=== PATIENT | male | born 1935 | race Caucasian/White ===

== ENCOUNTER 2017-01-12 09:26 | Outpatient (CLI) | payer MEDICARE, OTHER ==
[2017-01-12 10:19] LABS: Anion Gap 13 mmol/L (10-20); BUN (Urea Nitrogen) 33 mg/dL (8.4-25.7); Calc. Creatinine Clearance 0 mL/min (70-130); Calcium 9.1 mg/dL (7.8-10.44); Carbon Dioxide 26 mmol/L (23-31); Chloride 109 mmol/L (98-107); Estimated GFR-MDRD 45; Glucose 125 mg/dL (83-110); Potassium 4.8 mmol/L (3.5-5.1); Sodium 143 mmol/L (136-145)
== END 2017-01-12 09:27 | disposition home or self-care (01) ==
LOC: HPCALD 09:26
PROVIDERS: ATTEND Family Medicine
DX: I10 Essential (primary) hypertension (principal)
CPT/HCPCS: 36415; 80048

== ENCOUNTER 2017-02-24 07:48 | Outpatient (CLI) | payer MEDICARE ==
[2017-02-24 08:41] LABS: Hemoglobin 13.2 g/dL (14.0-18.0); Mean Corpuscular HGB CONC 34.5 g/dL (32.0-36.0); Mean Corpuscular Hemoglobin 32.3 pg (27.0-31.0); Mean Corpuscular Volume 93.6 fl (80.0-94.0); Mean Platelet Volume 7.8 fL (7.4-10.4); Platelet Count 186 thou/uL (130-400); RBC Distribution Width 11.9 % (11.5-14.5); White Blood Cell (WBC) Count 5.9 thou/uL (4.8-10.8)
[2017-02-24 08:48] LABS: Albumin 4.1 g/dL (3.4-4.8); Anion Gap 15 mmol/L (10-20); BUN (Urea Nitrogen) 33 mg/dL (8.4-25.7); BUN/Creatinine Ratio 21.43; Calc. Creatinine Clearance 0 mL/min (70-130); Calcium 9.7 mg/dL (7.8-10.44); Carbon Dioxide 25 mmol/L (23-31); Chloride 109 mmol/L (98-107); Estimated GFR-MDRD 43; Glucose 100 mg/dL (83-110); Potassium 4.7 mmol/L (3.5-5.1); Sodium 144 mmol/L (136-145)
[2017-02-24 17:08] LABS: Phosphorus 4.3 mg/dL (2.3-4.7)
[2017-02-24 17:26] LABS: Creatinine, Urine 85.58 mg/dL (63-166)
== END 2017-02-24 07:49 | disposition home or self-care (01) ==
LOC: BURLAB 07:48
PROVIDERS: ATTEND Internal Medicine Nephrology
DX: Z12.5 Encounter for screening for malignant neoplasm of prostate (principal); E78.5 Hyperlipidemia, unspecified; E11.22 Type 2 diabetes mellitus with diabetic chronic kidney disease; E72.11 Homocystinuria; I12.9 Hypertensive chronic kidney disease with stage 1 through stage 4 chronic kidney disease, or unspecified chronic kidney disease; N18.2 Chronic kidney disease, stage 2 (mild); I25.10 Atherosclerotic heart disease of native coronary artery without angina pectoris; R74.0 Nonspecific elevation of levels of transaminase and lactic acid dehydrogenase [LDH]; R74.8 Abnormal levels of other serum enzymes; R80.9 Proteinuria, unspecified
CPT/HCPCS: 36415; 80069; 82570; 84156; 85027; G0103

== ENCOUNTER 2017-03-17 09:26 | Outpatient (CLI) | payer MEDICARE ==
[2017-03-17 11:02] LABS: ALT (SGPT) 16 U/L (8-55); AST (SGOT) 21 U/L (5-34); Albumin 3.9 g/dL (3.4-4.8); Alkaline Phosphatase 66 U/L (40-150); Anion Gap 14 mmol/L (10-20); BUN (Urea Nitrogen) 29 mg/dL (8.4-25.7); Bilirubin, Total 0.8 mg/dL (0.2-1.2); Calc. Creatinine Clearance 0 mL/min (70-130); Calcium 9.2 mg/dL (7.8-10.44); Carbon Dioxide 25 mmol/L (23-31); Cardiac Risk 3.9 (Less than 4.5); Chloride 110 mmol/L (98-107); Cholesterol 125 mg/dl (< 200 Desired); Estimated GFR-MDRD 49; Globulin 2.8 g/dL (2.4-3.5); Glucose 80 mg/dL (83-110); HDL Cholesterol 32 mg/dL (>60 Neg Risk); LDL Cholesterol, Calculated 76 mg/dL; Protein, Total 6.7 g/dL (5.8-8.1); Sodium 144 mmol/L (136-145); Triglycerides 83 mg/dL (Less than 150)
[2017-03-17 11:12] LABS: Hemoglobin A1c 6.3 % (4.0-6.0)
== END 2017-03-17 09:27 | disposition home or self-care (01) ==
LOC: HPCALD 09:26
PROVIDERS: ATTEND Family Medicine
DX: E11.9 Type 2 diabetes mellitus without complications (principal); I10 Essential (primary) hypertension
CPT/HCPCS: 36415; 80053; 80061; 83036

== ENCOUNTER 2017-04-24 14:30 | Outpatient (CLI) | payer MEDICARE ==
--- NOTE | 2017-04-24 21:49 | RAD ---
CHEST TWO VIEWS: Date: 04-24-17 Comparison: 05-27-16 done at [place]. FINDINGS: Mild to moderate cardiomegaly is no worse than before. There is no congestion, effusions, or pulmona ry edema. Median sternotomy sutures are seen from prior surgery. The lungs are clear. The mediastinu m shows no acute change. IMPRESSION: Stable exam showing cardiomegaly but no acute findings. POS: HOME
== END 2017-04-24 14:31 | disposition home or self-care (01) ==
LOC: BURRAD 14:30
PROVIDERS: ATTEND Internal Medicine
DX: I35.0 Nonrheumatic aortic (valve) stenosis (principal); I51.7 Cardiomegaly
CPT/HCPCS: 36415; 71020; 83880

== ENCOUNTER 2018-04-01 22:50 | Emergency (ER) | payer MEDICARE ==
[2018-04-01 23:09] LABS: #Basophils 0.1 thou/uL (0.0-0.2); #Eosinphils 0.4 thou/uL (0.0-0.7); #Monocytes 0.7 thou/uL (0.11-0.59); %Basophils 1.5 % (0.0-1.0); %Eosinophils 6.2 % (0.0-10.0); %Lymphocytes 27.9 % (21.0-51.0); %Monocytes 9.3 % (0.0-10.0); %Neutrophils 55.1 % (42.0-75.0); Hemoglobin 11.7 g/dL (14.0-18.0); Mean Corpuscular HGB CONC 36.2 g/dL (32.0-36.0); Mean Corpuscular Hemoglobin 31.2 pg (27.0-31.0); Mean Corpuscular Volume 86.2 fL (78.0-98.0); Mean Platelet Volume 7.8 fL (7.4-10.4); Platelet Count 164 thou/uL (130-400); RBC Distribution Width 11.9 % (11.5-14.5); Red Blood Cell (RBC) Count 3.76 mill/uL (4.70-6.10); White Blood Cell (WBC) Count 7.2 thou/uL (4.8-10.8)
[2018-04-01 23:27] LABS: ALT (SGPT) 16 U/L (8-55); AST (SGOT) 24 U/L (5-34); Albumin 4.3 g/dL (3.4-4.8); Alkaline Phosphatase 77 U/L (40-150); Anion Gap 15 mmol/L (10-20); BUN (Urea Nitrogen) 35 mg/dL (8.4-25.7); Bilirubin, Total 0.6 mg/dL (0.2-1.2); CKMB 3.7 ng/mL (0-6.6); Calc. Creatinine Clearance 0 mL/min (70-130); Calcium 9.5 mg/dL (7.8-10.44); Carbon Dioxide 22 mmol/L (23-31); Chloride 111 mmol/L (98-107); Estimated GFR-MDRD 42; Globulin 3.5 g/dL (2.4-3.5); Glucose 158 mg/dL (83-110); Magnesium 2.9 mg/dL (1.6-2.6); Protein, Total 7.8 g/dL (5.8-8.1); Sodium 143 mmol/L (136-145)
--- NOTE | 2018-04-02 00:11 | CT ---
NONCONTRAST HEAD CT: HISTORY: New onset weakness. Slurred speech. COMPARISON: None. TECHNIQUE: A noncontrast head CT is performed from the skull base to the skull vertex. FINDINGS: There is beam attenuation artifact secondary to a right-sided hearing aid. No parenchymal hemorrhage. No extraaxial hematoma. No midline shift. The basilar cisterns are valdez nt. Age appropriate atrophy. Cortical harris white matter differentiation is preserved. The ventricles and sulci are patent and symmetric. The calvarium is intact. Adequate aeration of the sinuses and mastoid air cells. Cavernous carotid atherosclerosis is noted. Coarse calcification in the pineal bland is identified. A small punctate remote infarct may be present along the anterior left lentiform nucleus. IMPRESSION: No acute intracranial process. The results of the study were discussed with Dr. Jama on 04/01/2018 at 11:11 p.m. JAYDE FARLEY POS: [facility]
--- NOTE | 2018-04-02 11:06 | CT ---
PRELIMINARY REPORT/[facility]/EMERGENTY AFTER-HOURS PROCEDURE CT Angiography Head With Intravenous Contrast CLINICAL HISTORY: 82 years old, male; Signs and symptoms; Speech disturbance and weakness; Slurred speech; Additional i nfo: Weakness slurred speech// this is a cta head & neck TECHNIQUE: Axial computed tomographic angiography images of the head with intravenous contrast using CT angiogra phy protocol. All CT scans at this facility use at least one of these dose optimization techniques: a utomated exposure control; mA and/or kV adjustment per patient size (includes targeted exams where do se is matched to clinical indication); or iterative reconstruction. MIP reconstructed images were created and reviewed. COMPARISON: No relevant prior studies available. FINDINGS: Right internal carotid artery: No acute findings. Intracranial segment is patent with no significant stenosis. No aneurysm. Right anterior cerebral artery: Unremarkable. No occlusion or significant stenosis. No aneurysm. Right middle cerebral artery: Unremarkable. No occlusion or significant stenosis. No aneurysm. Right posterior cerebral artery: Unremarkable. No occlusion or significant stenosis. No aneurysm. Right vertebral artery: Unremarkable as visualized. Left internal carotid artery: No acute findings. Intracranial segment is patent with no significant s tenosis. No aneurysm. Left anterior cerebral artery: Unremarkable. No occlusion or significant stenosis. No aneurysm. Left middle cerebral artery: Unremarkable. No occlusion or significant stenosis. No aneurysm. Left posterior cerebral artery: Unremarkable. No occlusion or significant stenosis. No aneurysm. Left vertebral artery: Unremarkable as visualized. Basilar artery: Unremarkable. No occlusion or significant stenosis. No aneurysm. IMPRESSION: No evidence of focal high-grade stenosis or intraluminal filling defect. CT Angiography Neck Without And With Intravenous Contrast COMPARISON: No relevant prior studies available. FINDINGS: VASCULATURE: Right common carotid artery: Unremarkable. No significant stenosis. No dissection or occlusion. Right internal carotid artery: Atherosclerotic plaque in the right carotid bulb with less than 50% st enosis. No dissection or occlusion. Right external carotid artery: Unremarkable. No occlusion. Right vertebral artery: Unremarkable. No significant stenosis. No dissection or occlusion. Left common carotid artery: Unremarkable. No significant stenosis. No dissection or occlusion. Left internal carotid artery: Atherosclerotic plaque in the left carotid bulb with less than 50% sten osis. No dissection or occlusion. Left external carotid artery: Unremarkable. No occlusion. Left vertebral artery: Unremarkable. No significant stenosis. No dissection or occlusion. NECK: Bones/joints: Degenerative changes in the spine. No acute fracture. No dislocation. Soft tissues: Unremarkable as visualized. No mass. CAROTID STENOSIS REFERENCE USING NASCET CRITERIA: % ICA stenosis = (1 - narrowest ICA diameter/diameter of distal cervical ICA) x 100. Mild - <50% stenosis. Moderate - 50-69% stenosis. Severe - 70-94% stenosis. Near occlusion - 95-99% stenosis. Occluded - 100% stenosis. IMPRESSION: No evidence of focal high-grade stenosis or intraluminal filling defect. Thank you for allowing us to participate in the care of your patient. Dictated and Authenticated by: Lasha Ayala MD 04/02/2018 12:32 AM Central Time ([place] & [place]) FINAL REPORT CT ANGIO HEAD WITH IV CONTRAST: Multiple axial tomograms obtained through head with angio protocol. Multiplanar reconstruction and 3D postprocessing performed. FINDINGS: Motion artifact degrades the exam. The intracranial internal carotid arteries show mild atherosclerot ic change. No evidence of significant stenosis. The anterior cerebral arteries, middle cerebral arter ies, and posterior cerebral arteries appear and symmetric. No focal stenosis or occlusion. I am in agreement with the preliminary report issued by [facility]. FINAL REPORT CT ANGIO NECK: Multiple axial tomograms obtained through neck following angio protocol with multiplanar reconstructi on and 3D postprocessing. FINDINGS: No significant stenosis at the origin of the arch vessels. Atherosclerotic calcification is seen at b oth bulbs; however, no evidence of significant stenosis identified in either internal carotid artery. I am in agreement with the preliminary report issued by [facility]. POS: [facility]
== END 2018-04-02 00:35 | disposition short-term general hospital (02) ==
LOC: BURERS 22:50
DX: I63.9 Cerebral infarction, unspecified (principal); I21.4 Non-ST elevation (NSTEMI) myocardial infarction; E11.9 Type 2 diabetes mellitus without complications; I10 Essential (primary) hypertension; E78.5 Hyperlipidemia, unspecified
CPT/HCPCS: 36416; 70450; 70496; 70498; 80053; 82553; 83735; 84484; 85025; 93005

== ENCOUNTER 2018-04-14 19:57 | Emergency (ER) | payer MEDICARE | END 2018-04-14 20:25 | disposition home or self-care (01) | LOC: BURERS 19:57 | DX: T82.838A Hemorrhage due to vascular prosthetic devices, implants and grafts, initial encounter (principal); E11.9 Type 2 diabetes mellitus without complications; I10 Essential (primary) hypertension; I48.91 Unspecified atrial fibrillation; Z79.899 Other long term (current) drug therapy; Z79.4 Long term (current) use of insulin | CPT/HCPCS: 12001 ==

== ENCOUNTER 2018-04-15 19:57 | Emergency (ER) | payer MEDICARE | END 2018-04-15 22:12 | disposition left against medical advice (07) | LOC: BURERS 19:57 | DX: Z53.21 Procedure and treatment not carried out due to patient leaving prior to being seen by health care provider (principal) ==

== ENCOUNTER 2021-12-08 10:46 | Inpatient (IN) | payer MEDICARE ==
[2021-12-10] MEDS ORDERED: Acetaminophen/Codeine 30-300mg Tablet PO PRN (00:47)
[2021-12-10] MEDS: Acetaminophen/Codeine 30-300mg Tablet PO PRN ×2 (04:18→14:35)
[2021-12-10] MEDS ORDERED: SOD CHLORIDE TOP PRN (06:36)
[2021-12-10] MEDS ORDERED: [UNRECOGNIZED DRUG - OTHER] TOP PRN (06:36)
[2021-12-10] MEDS ORDERED: LAN TOP PRN (06:36)
[2021-12-10] MEDS ORDERED: Hydrocerin (Eucerin) Cream 120 gm Jar TOP PRN (06:36)
[2021-12-10] MEDS ORDERED: LUBRIDERM TOP PRN (07:01)
[2021-12-10] MEDS ORDERED: Dextrose 50% Abboject 50 ML SYRINGE SLOW IVP PRN (07:18)
[2021-12-10] MEDS ORDERED: Dextrose 5% in Water 1,000 ML IV PRN (07:18)
[2021-12-10] MEDS ORDERED: Linaclotide [Linzess] 290 MCG Capsule PO SCH (09:00)
[2021-12-10] MEDS ORDERED: MILK THISTLE 500 MG PO SCH (09:00)
[2021-12-10] MEDS ORDERED: Non-Formulary Item 1 EACH (Cholecalciferol (Vitamin D3) [Vitamin D3] 2,000 UNIT Capsule) PO SCH (09:00)
[2021-12-10] MEDS ORDERED: Non-Formulary Item 1 EACH (Magnesium [Magnesium] 30 MG Tablet) PO SCH (09:00)
[2021-12-10] MEDS ORDERED: Non-Formulary Item 1 EACH (Levemir Flexpen [Levemir Flexpen] 100 UNITS/ML Pen) SC SCH ×2 (09:00→21:00)
[2021-12-10] MEDS ORDERED: Non-Formulary Item 1 EACH (Linaclotide [Linzess] 290 MCG Capsule) PO SCH (09:00)
[2021-12-10] MEDS ORDERED: Non-Formulary Item 1 EACH (Atorvastatin Calcium [Lipitor] 20 MG Tab) PO SCH (09:00)
[2021-12-10] MEDS ORDERED: Non-Formulary Item 1 EACH (Cyanocobalamin (Vitamin B-12) [Vitamin B-12] 500 MCG Tablet) PO SCH (09:00)
[2021-12-10] MEDS: Multivitamin W/ Minerals 1 TAB PO SCH (10:23)
[2021-12-10] MEDS: Senokot 8.6 MG TAB PO SCH (10:23)
[2021-12-10] MEDS: Apixaban 2.5 MG TAB PO SCH ×2 (10:24→20:44)
[2021-12-10] MEDS: Aspirin 81 mg Enteric Coated Tablet PO SCH (10:24)
[2021-12-10] MEDS: Cholecalciferol 1,000 UNITS (25 MCG) TAB PO SCH (10:24)
[2021-12-10] MEDS: Carvedilol 3.125 MG TAB PO SCH ×2 (10:24→17:49)
[2021-12-10] MEDS: Fish Oil 1,000 MG CAP PO SCH ×2 (10:25→20:44)
[2021-12-10] MEDS: Furosemide 20 MG TAB PO SCH (10:26)
[2021-12-10] MEDS: Acetaminophen/Codeine 30-300mg Tablet PO SCH ×4 (10:27→23:50)
[2021-12-10] MEDS: Magnesium Oxide 400 MG TAB PO SCH (10:27)
[2021-12-10] MEDS: HumaLOG 300 UNITS/3 ML VIAL SC PRN ×3 (10:30→17:49)
[2021-12-10] MEDS: Lantus 1000 UNITS/10 ML VIAL SC SCH ×2 (10:31→20:45)
[2021-12-10] MEDS: Cyanocobalamin (Vitamin B-12) 1,000 MCG TAB PO SCH (10:32)
[2021-12-10] MEDS: MILK THISTLE 500 MG PO SCH (14:01)
[2021-12-10] MEDS: Polyethylene Glycol 3350 17 GM Packet PO SCH (14:01)
[2021-12-10] MEDS: Acetaminophen 325 MG TAB PO SCH ×3 (16:26→23:51)
[2021-12-10] MEDS: Famotidine 20 MG TAB PO SCH (20:44)
[2021-12-10] MEDS: Atorvastatin Calcium 40 MG TAB PO SCH (20:44)
[2021-12-11] MEDS: Acetaminophen/Codeine 30-300mg Tablet PO SCH ×3 (05:57→17:46)
[2021-12-11] MEDS: Acetaminophen 325 MG TAB PO SCH ×3 (05:58→17:45)
[2021-12-11] MEDS: Linaclotide [Linzess] 290 MCG Capsule PO SCH (07:29)
[2021-12-11] MEDS: Aspirin 81 mg Enteric Coated Tablet PO SCH (09:09)
[2021-12-11] MEDS: Cyanocobalamin (Vitamin B-12) 1,000 MCG TAB PO SCH (09:09)
[2021-12-11] MEDS: Carvedilol 3.125 MG TAB PO SCH ×2 (09:10→17:11)
[2021-12-11] MEDS: Multivitamin W/ Minerals 1 TAB PO SCH (09:11)
[2021-12-11] MEDS: Magnesium Oxide 400 MG TAB PO SCH (09:11)
[2021-12-11] MEDS: Cholecalciferol 1,000 UNITS (25 MCG) TAB PO SCH (09:11)
[2021-12-11] MEDS: Furosemide 20 MG TAB PO SCH (09:11)
[2021-12-11] MEDS: Apixaban 2.5 MG TAB PO SCH ×2 (09:11→20:17)
[2021-12-11] MEDS: Senokot 8.6 MG TAB PO SCH (09:11)
[2021-12-11] MEDS: Polyethylene Glycol 3350 17 GM Packet PO SCH (09:12)
[2021-12-11] MEDS: Fish Oil 1,000 MG CAP PO SCH ×3 (09:12→20:19)
[2021-12-11] MEDS: MILK THISTLE 500 MG PO SCH (09:12)
[2021-12-11] MEDS: Lantus 1000 UNITS/10 ML VIAL SC SCH ×2 (09:17→20:16)
[2021-12-11] MEDS: HumaLOG 300 UNITS/3 ML VIAL SC PRN (12:10)
[2021-12-11] MEDS: Ondansetron ODT 4 MG TAB PO PRN (17:36)
[2021-12-11] MEDS: Atorvastatin Calcium 40 MG TAB PO SCH (20:16)
[2021-12-11] MEDS: Famotidine 20 MG TAB PO SCH (20:17)
[2021-12-12] MEDS: Acetaminophen/Codeine 30-300mg Tablet PO SCH ×4 (01:23→18:44)
[2021-12-12] MEDS: Acetaminophen 325 MG TAB PO SCH ×4 (01:23→18:44)
[2021-12-12] MEDS: Polyethylene Glycol 3350 17 GM Packet PO SCH (08:52)
[2021-12-12] MEDS: Senokot 8.6 MG TAB PO SCH (08:52)
[2021-12-12] MEDS: Aspirin 81 mg Enteric Coated Tablet PO SCH (08:53)
[2021-12-12] MEDS: Fish Oil 1,000 MG CAP PO SCH ×2 (08:53→20:34)
[2021-12-12] MEDS: Apixaban 2.5 MG TAB PO SCH ×2 (08:57→20:33)
[2021-12-12] MEDS: Multivitamin W/ Minerals 1 TAB PO SCH (08:57)
[2021-12-12] MEDS: Cyanocobalamin (Vitamin B-12) 1,000 MCG TAB PO SCH (08:57)
[2021-12-12] MEDS: Furosemide 20 MG TAB PO SCH (08:57)
[2021-12-12] MEDS: Cholecalciferol 1,000 UNITS (25 MCG) TAB PO SCH (08:57)
[2021-12-12] MEDS: Magnesium Oxide 400 MG TAB PO SCH (08:57)
[2021-12-12] MEDS: Carvedilol 3.125 MG TAB PO SCH ×2 (08:58→17:13)
[2021-12-12] MEDS: Linaclotide [Linzess] 290 MCG Capsule PO SCH (08:58)
[2021-12-12] MEDS: Lantus 1000 UNITS/10 ML VIAL SC SCH ×2 (08:59→20:34)
[2021-12-12] MEDS: MILK THISTLE 500 MG PO SCH (09:09)
[2021-12-12] MEDS: Bisacodyl 10 MG SUPP PR PRN (13:09)
[2021-12-12] MEDS: HumaLOG 300 UNITS/3 ML VIAL SC PRN ×2 (13:48→17:13)
[2021-12-12] MEDS: Famotidine 20 MG TAB PO SCH (20:33)
[2021-12-12] MEDS: Atorvastatin Calcium 40 MG TAB PO SCH (20:33)
[2021-12-13] MEDS: Acetaminophen 325 MG TAB PO SCH ×3 (01:01→11:09)
[2021-12-13] MEDS: Acetaminophen/Codeine 30-300mg Tablet PO SCH ×3 (01:02→11:07)
[2021-12-13 05:33] LABS: #Basophils 0.1 thou/uL (0.0-0.2); #Eosinphils 0.1 thou/uL (0.0-0.7); #Lymphocytes 1.1 thou/uL (1.20-3.40); #Neutrophils 7.3 thou/uL (1.40-6.50); %Basophils 0.9 % (0.0-1.0); %Eosinophils 1.4 % (0.0-10.0); %Lymphocytes 11.1 % (21.0-51.0); %Monocytes 10.1 % (0.0-10.0); %Neutrophils 76.6 % (42.0-75.0); Hemoglobin 9.4 g/dL (14.0-18.0); Mean Corpuscular HGB CONC 33.8 g/dL (32.0-36.0); Mean Corpuscular Hemoglobin 33.3 pg (27.0-31.0); Mean Corpuscular Volume 98.6 fL (78.0-98.0); Mean Platelet Volume 6.6 fL (7.4-10.4); Platelet Count 350 thou/uL (130-400); RBC Distribution Width 13.3 % (11.5-14.5); Red Blood Cell (RBC) Count 2.83 mill/uL (4.70-6.10); White Blood Cell (WBC) Count 9.5 thou/uL (4.8-10.8)
[2021-12-13 06:11] LABS: ALT (SGPT) Less than 7 U/L (8-55); AST (SGOT) 21 U/L (5-34); Albumin 2.7 g/dL (3.4-4.8); Alkaline Phosphatase 90 U/L (40-110); Anion Gap 15 mmol/L (10-20); BUN (Urea Nitrogen) 43 mg/dL (8.4-25.7); Calc. Creatinine Clearance 58 mL/min (70-130); Calcium 8.3 mg/dL (7.8-10.44); Carbon Dioxide 26 mmol/L (23-31); Chloride 106 mmol/L (98-107); Globulin 2.5 g/dL (2.4-3.5); Glucose 217 mg/dL (83-110); Potassium 4.8 mmol/L (3.5-5.1); Protein, Total 5.2 g/dL (5.8-8.1); Sodium 142 mmol/L (136-145)
[2021-12-13] MEDS ORDERED: Polyethylene Glycol 3350 17 GM Packet PO PRN (07:15)
[2021-12-13] MEDS: Linaclotide [Linzess] 290 MCG Capsule PO SCH (08:27)
[2021-12-13] MEDS: HumaLOG 300 UNITS/3 ML VIAL SC PRN ×3 (09:41→17:41)
[2021-12-13] MEDS: Cyanocobalamin (Vitamin B-12) 1,000 MCG TAB PO SCH (09:42)
[2021-12-13] MEDS: Cholecalciferol 1,000 UNITS (25 MCG) TAB PO SCH (09:42)
[2021-12-13] MEDS: Lantus 1000 UNITS/10 ML VIAL SC SCH ×2 (09:42→20:58)
[2021-12-13] MEDS: Furosemide 20 MG TAB PO SCH (09:43)
[2021-12-13] MEDS: Apixaban 2.5 MG TAB PO SCH ×2 (09:43→21:00)
[2021-12-13] MEDS: Carvedilol 3.125 MG TAB PO SCH ×2 (09:43→16:41)
[2021-12-13] MEDS: Aspirin 81 mg Enteric Coated Tablet PO SCH (09:43)
[2021-12-13] MEDS: Multivitamin W/ Minerals 1 TAB PO SCH (09:43)
[2021-12-13] MEDS: Magnesium Oxide 400 MG TAB PO SCH (09:43)
[2021-12-13] MEDS: Fish Oil 1,000 MG CAP PO SCH (09:44)
[2021-12-13] MEDS: Senokot 8.6 MG TAB PO SCH (09:44)
[2021-12-13] MEDS: MILK THISTLE 500 MG PO SCH (10:16)
[2021-12-13] MEDS: Famotidine 20 MG TAB PO SCH (21:00)
[2021-12-13] MEDS: Atorvastatin Calcium 40 MG TAB PO SCH (21:00)
[2021-12-14] MEDS: Acetaminophen/Codeine 30-300mg Tablet PO PRN ×4 (03:07→16:51)
[2021-12-14] MEDS: Linaclotide [Linzess] 290 MCG Capsule PO SCH (08:20)
[2021-12-14] MEDS: Lantus 1000 UNITS/10 ML VIAL SC SCH ×2 (09:50→20:38)
[2021-12-14] MEDS: Multivitamin W/ Minerals 1 TAB PO SCH (09:51)
[2021-12-14] MEDS: Carvedilol 3.125 MG TAB PO SCH ×2 (09:51→16:55)
[2021-12-14] MEDS: Cholecalciferol 1,000 UNITS (25 MCG) TAB PO SCH (09:51)
[2021-12-14] MEDS: Magnesium Oxide 400 MG TAB PO SCH (09:51)
[2021-12-14] MEDS: Cyanocobalamin (Vitamin B-12) 1,000 MCG TAB PO SCH (09:51)
[2021-12-14] MEDS: Aspirin 81 mg Enteric Coated Tablet PO SCH (09:52)
[2021-12-14] MEDS: Furosemide 20 MG TAB PO SCH (09:52)
[2021-12-14] MEDS: MILK THISTLE 500 MG PO SCH (09:53)
[2021-12-14] MEDS: Apixaban 2.5 MG TAB PO SCH ×2 (09:53→20:39)
[2021-12-14] MEDS: Senokot 8.6 MG TAB PO SCH (09:53)
[2021-12-14] MEDS ORDERED: Aquaphor 3.5 oz (99 G) JAR TOP PRN (16:12)
[2021-12-14] MEDS: HumaLOG 300 UNITS/3 ML VIAL SC PRN (16:52)
[2021-12-14] MEDS: Atorvastatin Calcium 40 MG TAB PO SCH (20:39)
[2021-12-14] MEDS: Famotidine 20 MG TAB PO SCH (20:39)
[2021-12-15] MEDS: Acetaminophen/Codeine 30-300mg Tablet PO PRN ×2 (00:19→12:18)
[2021-12-15] MEDS: Linaclotide [Linzess] 290 MCG Capsule PO SCH (07:49)
[2021-12-15] MEDS: Cyanocobalamin (Vitamin B-12) 1,000 MCG TAB PO SCH (08:52)
[2021-12-15] MEDS: Aspirin 81 mg Enteric Coated Tablet PO SCH (08:52)
[2021-12-15] MEDS: Multivitamin W/ Minerals 1 TAB PO SCH (08:52)
[2021-12-15] MEDS: Cholecalciferol 1,000 UNITS (25 MCG) TAB PO SCH (08:52)
[2021-12-15] MEDS: Magnesium Oxide 400 MG TAB PO SCH (08:53)
[2021-12-15] MEDS: Lantus 1000 UNITS/10 ML VIAL SC SCH ×2 (08:53→20:43)
[2021-12-15] MEDS: Carvedilol 3.125 MG TAB PO SCH ×2 (08:53→18:14)
[2021-12-15] MEDS: Apixaban 2.5 MG TAB PO SCH ×2 (08:53→20:44)
[2021-12-15] MEDS: Furosemide 20 MG TAB PO SCH (08:53)
[2021-12-15] MEDS: Senokot 8.6 MG TAB PO SCH (08:53)
[2021-12-15] MEDS: Cyclobenzaprine 10 MG TAB PO PRN (14:19)
[2021-12-15] MEDS: Ondansetron ODT 4 MG TAB PO PRN (16:26)
[2021-12-15] MEDS: Famotidine 20 MG TAB PO SCH (20:44)
[2021-12-15] MEDS: Atorvastatin Calcium 40 MG TAB PO SCH (20:45)
[2021-12-16] MEDS: Cyclobenzaprine 10 MG TAB PO PRN (00:51)
[2021-12-16] MEDS: Acetaminophen/Codeine 30-300mg Tablet PO PRN ×2 (00:52→10:07)
[2021-12-16] MEDS: Ondansetron ODT 4 MG TAB PO PRN ×3 (00:52→16:51)
[2021-12-16] MEDS: Linaclotide [Linzess] 290 MCG Capsule PO SCH (04:49)
[2021-12-16] MEDS: Cholecalciferol 1,000 UNITS (25 MCG) TAB PO SCH (08:37)
[2021-12-16] MEDS: Apixaban 2.5 MG TAB PO SCH ×2 (08:37→21:25)
[2021-12-16] MEDS: Cyanocobalamin (Vitamin B-12) 1,000 MCG TAB PO SCH (08:37)
[2021-12-16] MEDS: Senokot 8.6 MG TAB PO SCH (08:39)
[2021-12-16] MEDS: Multivitamin W/ Minerals 1 TAB PO SCH (08:39)
[2021-12-16] MEDS: Furosemide 20 MG TAB PO SCH (08:39)
[2021-12-16] MEDS: Aspirin 81 mg Enteric Coated Tablet PO SCH (08:39)
[2021-12-16] MEDS: Carvedilol 3.125 MG TAB PO SCH ×2 (08:39→16:51)
[2021-12-16] MEDS: Magnesium Oxide 400 MG TAB PO SCH (08:39)
[2021-12-16] MEDS: Lantus 1000 UNITS/10 ML VIAL SC SCH (08:41)
[2021-12-16] MEDS: Promethazine HCl 25 MG/ML VIAL IM PRN (12:24)
[2021-12-16] MEDS: Famotidine 20 MG TAB PO SCH (21:00)
[2021-12-16] MEDS: Dextrose 5 % And 0.9 % NaCl 1,000 ML IV SCH (21:00)
[2021-12-16] MEDS: Atorvastatin Calcium 40 MG TAB PO SCH (21:00)
[2021-12-17] MEDS: Promethazine HCl 25 MG/ML VIAL IM PRN (00:41)
[2021-12-17 05:55] LABS: #Basophils 0.1 thou/uL (0.0-0.2); #Eosinphils 0.1 thou/uL (0.0-0.7); #Lymphocytes 0.8 thou/uL (1.20-3.40); #Monocytes 0.8 thou/uL (0.11-0.59); #Neutrophils 10.3 thou/uL (1.40-6.50); %Basophils 0.8 % (0.0-1.0); %Lymphocytes 6.6 % (21.0-51.0); %Monocytes 6.5 % (0.0-10.0); %Neutrophils 85.2 % (42.0-75.0); Hemoglobin 10.3 g/dL (14.0-18.0); Mean Corpuscular Hemoglobin 33.9 pg (27.0-31.0); Mean Corpuscular Volume 99.7 fL (78.0-98.0); Mean Platelet Volume 6.5 fL (7.4-10.4); Platelet Count 429 thou/uL (130-400); Red Blood Cell (RBC) Count 3.03 mill/uL (4.70-6.10)
[2021-12-17] MEDS: Linaclotide [Linzess] 290 MCG Capsule PO SCH (05:55)
[2021-12-17 06:15] LABS: ALT (SGPT) 8 U/L (8-55); AST (SGOT) 28 U/L (5-34); Albumin 3.1 g/dL (3.4-4.8); Alkaline Phosphatase 106 U/L (40-110); Anion Gap 16 mmol/L (10-20); BUN (Urea Nitrogen) 35 mg/dL (8.4-25.7); Bilirubin, Total 1.3 mg/dL (0.2-1.2); Calc. Creatinine Clearance 64 mL/min (70-130); Calcium 8.3 mg/dL (7.8-10.44); Carbon Dioxide 29 mmol/L (23-31); Chloride 106 mmol/L (98-107); Globulin 2.8 g/dL (2.4-3.5); Glucose 100 mg/dL (83-110); Potassium 4.5 mmol/L (3.5-5.1); Protein, Total 5.9 g/dL (5.8-8.1); Sodium 146 mmol/L (136-145)
[2021-12-17] MEDS ORDERED: Meropenem 1 GM in Sodium Chloride 0.9% 100 ML IVPB SCH (08:00)
[2021-12-17] MEDS: CALM MAG SUPPLEMENT PO PRN (12:31)
[2021-12-17] MEDS: Cholecalciferol 1,000 UNITS (25 MCG) TAB PO SCH (12:39)
[2021-12-17] MEDS: Carvedilol 3.125 MG TAB PO SCH ×2 (12:39→18:11)
[2021-12-17] MEDS: Apixaban 2.5 MG TAB PO SCH ×2 (12:39→20:35)
[2021-12-17] MEDS: Multivitamin W/ Minerals 1 TAB PO SCH (12:39)
[2021-12-17] MEDS: Magnesium Oxide 400 MG TAB PO SCH (12:39)
[2021-12-17] MEDS: Furosemide 20 MG TAB PO SCH (12:39)
[2021-12-17] MEDS: Cyanocobalamin (Vitamin B-12) 1,000 MCG TAB PO SCH (12:39)
[2021-12-17] MEDS: Aspirin 81 mg Enteric Coated Tablet PO SCH (12:39)
[2021-12-17] MEDS: Senokot 8.6 MG TAB PO SCH (12:40)
[2021-12-17] MEDS: Dextrose 5 % And 0.9 % NaCl 1,000 ML IV SCH (13:13)
[2021-12-17] MEDS: Meropenem 1 GM in Sodium Chloride 0.9% 100 ML IVPB SCH (18:07)
[2021-12-17] MEDS: Atorvastatin Calcium 40 MG TAB PO SCH (20:34)
[2021-12-17] MEDS: Famotidine 20 MG TAB PO SCH (20:34)
[2021-12-18] MEDS: Dextrose 5 % And 0.9 % NaCl 1,000 ML IV SCH ×3 (03:31→21:22)
[2021-12-18] MEDS: Meropenem 1 GM in Sodium Chloride 0.9% 100 ML IVPB SCH ×2 (03:44→16:16)
[2021-12-18] MEDS: CALM MAG SUPPLEMENT PO PRN (05:03)
[2021-12-18] MEDS: Linaclotide [Linzess] 290 MCG Capsule PO SCH ×2 (05:07→05:16)
[2021-12-18 05:17] LABS: #Basophils 0.1 thou/uL (0.0-0.2); #Eosinphils 0.3 thou/uL (0.0-0.7); #Lymphocytes 1.3 thou/uL (1.20-3.40); #Monocytes 0.8 thou/uL (0.11-0.59); #Neutrophils 8.7 thou/uL (1.40-6.50); %Basophils 0.9 % (0.0-1.0); %Eosinophils 3.1 % (0.0-10.0); %Lymphocytes 11.2 % (21.0-51.0); %Monocytes 6.8 % (0.0-10.0); Hemoglobin 8.5 g/dL (14.0-18.0); Mean Corpuscular HGB CONC 33.3 g/dL (32.0-36.0); Mean Corpuscular Hemoglobin 33.1 pg (27.0-31.0); Mean Corpuscular Volume 99.3 fL (78.0-98.0); Mean Platelet Volume 6.9 fL (7.4-10.4); Platelet Count 337 thou/uL (130-400); RBC Distribution Width 13.6 % (11.5-14.5); Red Blood Cell (RBC) Count 2.57 mill/uL (4.70-6.10); White Blood Cell (WBC) Count 11.2 thou/uL (4.8-10.8)
[2021-12-18 05:23] LABS: ALT (SGPT) Less than 7 U/L (8-55); AST (SGOT) 26 U/L (5-34); Albumin 2.6 g/dL (3.4-4.8); Alkaline Phosphatase 85 U/L (40-110); Anion Gap 10 mmol/L (10-20); BUN (Urea Nitrogen) 33 mg/dL (8.4-25.7); Bilirubin, Total 1.1 mg/dL (0.2-1.2); Calc. Creatinine Clearance 61 mL/min (70-130); Calcium 8.1 mg/dL (7.8-10.44); Carbon Dioxide 29 mmol/L (23-31); Chloride 108 mmol/L (98-107); Globulin 2.9 g/dL (2.4-3.5); Glucose 105 mg/dL (83-110); Potassium 4.2 mmol/L (3.5-5.1); Protein, Total 5.5 g/dL (5.8-8.1); Sodium 143 mmol/L (136-145)
[2021-12-18] MEDS: Carvedilol 3.125 MG TAB PO SCH ×2 (08:48→18:32)
[2021-12-18] MEDS: Cholecalciferol 1,000 UNITS (25 MCG) TAB PO SCH (08:48)
[2021-12-18] MEDS: Cyanocobalamin (Vitamin B-12) 1,000 MCG TAB PO SCH (08:48)
[2021-12-18] MEDS: Furosemide 20 MG TAB PO SCH (08:50)
[2021-12-18] MEDS: Multivitamin W/ Minerals 1 TAB PO SCH (08:50)
[2021-12-18] MEDS: Magnesium Oxide 400 MG TAB PO SCH (08:50)
[2021-12-18] MEDS: Senokot 8.6 MG TAB PO SCH (08:50)
[2021-12-18] MEDS: Apixaban 2.5 MG TAB PO SCH ×2 (08:50→20:54)
[2021-12-18] MEDS: Aspirin 81 mg Enteric Coated Tablet PO SCH (08:50)
[2021-12-18] MEDS: HumaLOG 300 UNITS/3 ML VIAL SC PRN (17:13)
[2021-12-18] MEDS: Famotidine 20 MG TAB PO SCH (20:54)
[2021-12-18] MEDS: Atorvastatin Calcium 40 MG TAB PO SCH (20:54)
[2021-12-18] MEDS: Cyclobenzaprine 10 MG TAB PO PRN (23:50)
[2021-12-19] MEDS: Meropenem 1 GM in Sodium Chloride 0.9% 100 ML IVPB SCH ×2 (04:36→17:05)
[2021-12-19] MEDS: Linaclotide [Linzess] 290 MCG Capsule PO SCH (04:44)
[2021-12-19] MEDS: Lantus 1000 UNITS/10 ML VIAL SC SCH ×2 (09:05→09:13)
[2021-12-19] MEDS: Carvedilol 3.125 MG TAB PO SCH ×2 (09:06→17:05)
[2021-12-19] MEDS: Cyanocobalamin (Vitamin B-12) 1,000 MCG TAB PO SCH (09:07)
[2021-12-19] MEDS: Aspirin 81 mg Enteric Coated Tablet PO SCH (09:07)
[2021-12-19] MEDS: Apixaban 2.5 MG TAB PO SCH ×2 (09:07→20:18)
[2021-12-19] MEDS: Furosemide 20 MG TAB PO SCH (09:07)
[2021-12-19] MEDS: Cholecalciferol 1,000 UNITS (25 MCG) TAB PO SCH (09:07)
[2021-12-19] MEDS: Multivitamin W/ Minerals 1 TAB PO SCH (09:07)
[2021-12-19] MEDS: Senokot 8.6 MG TAB PO SCH (09:07)
[2021-12-19] MEDS: Magnesium Oxide 400 MG TAB PO SCH (09:08)
[2021-12-19] MEDS: Bisacodyl 10 MG SUPP PR PRN (09:13)
[2021-12-19] MEDS: HumaLOG 300 UNITS/3 ML VIAL SC PRN ×2 (13:24→17:07)
[2021-12-19] MEDS: Cyclobenzaprine 10 MG TAB PO PRN ×2 (13:24→20:08)
[2021-12-19] MEDS: hydrOXYzine 25 MG TAB PO PRN (20:08)
[2021-12-19] MEDS: Atorvastatin Calcium 40 MG TAB PO SCH (20:09)
[2021-12-19] MEDS: Famotidine 20 MG TAB PO SCH (20:09)
[2021-12-20] MEDS: Meropenem 1 GM in Sodium Chloride 0.9% 100 ML IVPB SCH ×3 (04:04→21:09)
[2021-12-20] MEDS: Linaclotide [Linzess] 290 MCG Capsule PO SCH (04:13)
[2021-12-20 06:01] LABS: #Basophils 0.1 thou/uL (0.0-0.2); #Eosinphils 0.6 thou/uL (0.0-0.7); #Lymphocytes 1.1 thou/uL (1.20-3.40); #Monocytes 0.7 thou/uL (0.11-0.59); %Basophils 1.7 % (0.0-1.0); %Eosinophils 8.4 % (0.0-10.0); %Lymphocytes 14.5 % (21.0-51.0); %Monocytes 9.1 % (0.0-10.0); %Neutrophils 66.3 % (42.0-75.0); ALT (SGPT) 9 U/L (8-55); AST (SGOT) 28 U/L (5-34); Albumin 2.6 g/dL (3.4-4.8); Alkaline Phosphatase 99 U/L (40-110); Anion Gap 13 mmol/L (10-20); BUN (Urea Nitrogen) 24 mg/dL (8.4-25.7); Bilirubin, Total 0.9 mg/dL (0.2-1.2); Calc. Creatinine Clearance 77 mL/min (70-130); Calcium 8.1 mg/dL (7.8-10.44); Carbon Dioxide 27 mmol/L (23-31); Chloride 107 mmol/L (98-107); Globulin 2.7 g/dL (2.4-3.5); Glucose 111 mg/dL (83-110); Hemoglobin 8.8 g/dL (14.0-18.0); Mean Corpuscular HGB CONC 33.2 g/dL (32.0-36.0); Mean Corpuscular Volume 99.3 fL (78.0-98.0); Mean Platelet Volume 6.5 fL (7.4-10.4); Platelet Count 325 thou/uL (130-400); Potassium 4.7 mmol/L (3.5-5.1); Protein, Total 5.3 g/dL (5.8-8.1); RBC Distribution Width 13.4 % (11.5-14.5); Red Blood Cell (RBC) Count 2.66 mill/uL (4.70-6.10); Sodium 142 mmol/L (136-145); White Blood Cell (WBC) Count 7.6 thou/uL (4.8-10.8)
[2021-12-20] MEDS ORDERED: Apixaban 2.5 MG TAB PO SCH (07:01)
[2021-12-20] MEDS: traMADol HCl 50 MG TAB PO PRN (09:12)
[2021-12-20] MEDS: Apixaban 5 MG TAB PO SCH ×2 (09:13→20:24)
[2021-12-20] MEDS: Magnesium Oxide 400 MG TAB PO SCH (09:13)
[2021-12-20] MEDS: Furosemide 20 MG TAB PO SCH (09:13)
[2021-12-20] MEDS: Multivitamin W/ Minerals 1 TAB PO SCH (09:13)
[2021-12-20] MEDS: Cholecalciferol 1,000 UNITS (25 MCG) TAB PO SCH (09:13)
[2021-12-20] MEDS: Aspirin 81 mg Enteric Coated Tablet PO SCH (09:13)
[2021-12-20] MEDS: Cyanocobalamin (Vitamin B-12) 1,000 MCG TAB PO SCH (09:13)
[2021-12-20] MEDS: Senokot 8.6 MG TAB PO SCH (09:13)
[2021-12-20] MEDS: Carvedilol 3.125 MG TAB PO SCH ×2 (09:13→18:10)
[2021-12-20] MEDS: Lantus 1000 UNITS/10 ML VIAL SC SCH (09:14)
[2021-12-20] MEDS: HumaLOG 300 UNITS/3 ML VIAL SC PRN (12:41)
[2021-12-20] MEDS: Atorvastatin Calcium 40 MG TAB PO SCH (20:24)
[2021-12-20] MEDS: Cyclobenzaprine 10 MG TAB PO PRN (20:24)
[2021-12-20] MEDS: hydrOXYzine 25 MG TAB PO PRN (20:24)
[2021-12-20] MEDS: Famotidine 20 MG TAB PO SCH (20:25)
[2021-12-21] MEDS: Meropenem 1 GM in Sodium Chloride 0.9% 100 ML IVPB SCH ×3 (04:28→20:39)
[2021-12-21] MEDS: Linaclotide [Linzess] 290 MCG Capsule PO SCH (04:29)
[2021-12-21] MEDS: Carvedilol 3.125 MG TAB PO SCH ×2 (08:48→18:01)
[2021-12-21] MEDS: Furosemide 20 MG TAB PO SCH (08:48)
[2021-12-21] MEDS: Aspirin 81 mg Enteric Coated Tablet PO SCH (08:48)
[2021-12-21] MEDS: Cholecalciferol 1,000 UNITS (25 MCG) TAB PO SCH (08:49)
[2021-12-21] MEDS: Magnesium Oxide 400 MG TAB PO SCH (08:49)
[2021-12-21] MEDS: Multivitamin W/ Minerals 1 TAB PO SCH (08:49)
[2021-12-21] MEDS: traMADol HCl 50 MG TAB PO PRN ×2 (08:49→14:36)
[2021-12-21] MEDS: Apixaban 5 MG TAB PO SCH ×2 (08:49→20:41)
[2021-12-21] MEDS: Cyanocobalamin (Vitamin B-12) 1,000 MCG TAB PO SCH (08:49)
[2021-12-21] MEDS: Lantus 1000 UNITS/10 ML VIAL SC SCH (08:50)
[2021-12-21] MEDS: Senokot 8.6 MG TAB PO SCH (08:51)
[2021-12-21] MEDS: HumaLOG 300 UNITS/3 ML VIAL SC PRN (14:37)
[2021-12-21] MEDS: Atorvastatin Calcium 40 MG TAB PO SCH (20:40)
[2021-12-21] MEDS: Cyclobenzaprine 10 MG TAB PO PRN (20:40)
[2021-12-21] MEDS: hydrOXYzine 25 MG TAB PO PRN (20:41)
[2021-12-21] MEDS: Famotidine 20 MG TAB PO SCH (20:41)
[2021-12-22] MEDS: Meropenem 1 GM in Sodium Chloride 0.9% 100 ML IVPB SCH ×3 (04:11→20:36)
[2021-12-22] MEDS: Linaclotide [Linzess] 290 MCG Capsule PO SCH ×2 (04:15→04:34)
[2021-12-22] MEDS: traMADol HCl 50 MG TAB PO PRN ×2 (04:25→13:42)
[2021-12-22] MEDS: Lantus 1000 UNITS/10 ML VIAL SC SCH (09:47)
[2021-12-22] MEDS: Aspirin 81 mg Enteric Coated Tablet PO SCH (09:47)
[2021-12-22] MEDS: Multivitamin W/ Minerals 1 TAB PO SCH (09:47)
[2021-12-22] MEDS: Cholecalciferol 1,000 UNITS (25 MCG) TAB PO SCH (09:48)
[2021-12-22] MEDS: Furosemide 20 MG TAB PO SCH (09:48)
[2021-12-22] MEDS: Carvedilol 3.125 MG TAB PO SCH ×2 (09:48→16:45)
[2021-12-22] MEDS: Senokot 8.6 MG TAB PO SCH (09:48)
[2021-12-22] MEDS: Magnesium Oxide 400 MG TAB PO SCH (09:48)
[2021-12-22] MEDS: Apixaban 5 MG TAB PO SCH ×2 (09:48→20:38)
[2021-12-22] MEDS: Cyanocobalamin (Vitamin B-12) 1,000 MCG TAB PO SCH (09:48)
[2021-12-22 11:34] VITALS: BMI 33.1
[2021-12-22] MEDS: Famotidine 20 MG TAB PO SCH (20:38)
[2021-12-22] MEDS: Atorvastatin Calcium 40 MG TAB PO SCH (20:38)
[2021-12-23] MEDS: Meropenem 1 GM in Sodium Chloride 0.9% 100 ML IVPB SCH ×3 (03:35→20:09)
[2021-12-23] MEDS: Aspirin 81 mg Enteric Coated Tablet PO SCH (08:19)
[2021-12-23] MEDS: Senokot 8.6 MG TAB PO SCH (08:19)
[2021-12-23] MEDS: Cyanocobalamin (Vitamin B-12) 1,000 MCG TAB PO SCH (08:19)
[2021-12-23] MEDS: Magnesium Oxide 400 MG TAB PO SCH (08:21)
[2021-12-23] MEDS: Cholecalciferol 1,000 UNITS (25 MCG) TAB PO SCH (08:21)
[2021-12-23] MEDS: Carvedilol 3.125 MG TAB PO SCH ×2 (08:21→17:45)
[2021-12-23] MEDS: Multivitamin W/ Minerals 1 TAB PO SCH (08:22)
[2021-12-23] MEDS: Furosemide 20 MG TAB PO SCH (08:22)
[2021-12-23] MEDS: Apixaban 5 MG TAB PO SCH ×2 (08:22→20:14)
[2021-12-23] MEDS: Lantus 1000 UNITS/10 ML VIAL SC SCH (08:22)
[2021-12-23] MEDS: HumaLOG 300 UNITS/3 ML VIAL SC PRN (12:34)
[2021-12-23] MEDS: Atorvastatin Calcium 40 MG TAB PO SCH (20:14)
[2021-12-23] MEDS: Famotidine 20 MG TAB PO SCH (20:14)
[2021-12-23] MEDS: hydrOXYzine 25 MG TAB PO PRN (21:24)
[2021-12-23] MEDS: traMADol HCl 50 MG TAB PO PRN (23:15)
[2021-12-24] MEDS: Meropenem 1 GM in Sodium Chloride 0.9% 100 ML IVPB SCH (03:59)
[2021-12-24] MEDS: Linaclotide [Linzess] 290 MCG Capsule PO SCH (06:28)
[2021-12-24] MEDS: Cyanocobalamin (Vitamin B-12) 1,000 MCG TAB PO SCH (09:02)
[2021-12-24] MEDS: Senokot 8.6 MG TAB PO SCH (09:06)
[2021-12-24] MEDS: Multivitamin W/ Minerals 1 TAB PO SCH (09:06)
[2021-12-24] MEDS: Magnesium Oxide 400 MG TAB PO SCH (09:06)
[2021-12-24] MEDS: Carvedilol 3.125 MG TAB PO SCH ×2 (09:06→17:40)
[2021-12-24] MEDS: Aspirin 81 mg Enteric Coated Tablet PO SCH (09:06)
[2021-12-24] MEDS: Furosemide 20 MG TAB PO SCH (09:06)
[2021-12-24] MEDS: Cholecalciferol 1,000 UNITS (25 MCG) TAB PO SCH (09:06)
[2021-12-24] MEDS: Apixaban 5 MG TAB PO SCH ×2 (09:07→20:28)
[2021-12-24] MEDS: Lantus 1000 UNITS/10 ML VIAL SC SCH (09:27)
[2021-12-24] MEDS: traMADol HCl 50 MG TAB PO PRN ×2 (09:32→16:07)
[2021-12-24] MEDS: HumaLOG 300 UNITS/3 ML VIAL SC PRN (12:21)
[2021-12-24] MEDS: Acetaminophen 325 MG TAB PO PRN ×2 (12:26→20:30)
[2021-12-24] MEDS: Atorvastatin Calcium 40 MG TAB PO SCH (20:28)
[2021-12-24] MEDS: hydrOXYzine 25 MG TAB PO PRN (20:28)
[2021-12-24] MEDS: Famotidine 20 MG TAB PO SCH (20:28)
[2021-12-24] MEDS: Cyclobenzaprine 10 MG TAB PO PRN (20:28)
[2021-12-25] MEDS: traMADol HCl 50 MG TAB PO SCH ×3 (00:04→16:18)
[2021-12-25] MEDS: Linaclotide [Linzess] 290 MCG Capsule PO SCH (06:21)
[2021-12-25] MEDS: Magnesium Oxide 400 MG TAB PO SCH (08:20)
[2021-12-25] MEDS: Multivitamin W/ Minerals 1 TAB PO SCH (08:21)
[2021-12-25] MEDS: Senokot 8.6 MG TAB PO SCH (08:21)
[2021-12-25] MEDS: Cyanocobalamin (Vitamin B-12) 1,000 MCG TAB PO SCH (08:22)
[2021-12-25] MEDS: Aspirin 81 mg Enteric Coated Tablet PO SCH (08:23)
[2021-12-25] MEDS: Apixaban 5 MG TAB PO SCH ×2 (08:23→20:45)
[2021-12-25] MEDS: Furosemide 20 MG TAB PO SCH (08:23)
[2021-12-25] MEDS: Cholecalciferol 1,000 UNITS (25 MCG) TAB PO SCH (08:23)
[2021-12-25] MEDS: Carvedilol 3.125 MG TAB PO SCH ×2 (08:24→16:17)
[2021-12-25] MEDS: Lantus 1000 UNITS/10 ML VIAL SC SCH (08:29)
[2021-12-25] MEDS: HumaLOG 300 UNITS/3 ML VIAL SC PRN (12:31)
[2021-12-25] MEDS: Famotidine 20 MG TAB PO SCH (20:45)
[2021-12-25] MEDS: hydrOXYzine 25 MG TAB PO PRN (20:45)
[2021-12-25] MEDS: Atorvastatin Calcium 40 MG TAB PO SCH (20:45)
[2021-12-25] MEDS: Cyclobenzaprine 10 MG TAB PO PRN (20:46)
[2021-12-26] MEDS: traMADol HCl 50 MG TAB PO SCH ×3 (00:15→17:15)
[2021-12-26] MEDS: Linaclotide [Linzess] 290 MCG Capsule PO SCH (05:24)
[2021-12-26] MEDS: Senokot 8.6 MG TAB PO SCH (08:29)
[2021-12-26] MEDS: Furosemide 20 MG TAB PO SCH (08:29)
[2021-12-26] MEDS: Multivitamin W/ Minerals 1 TAB PO SCH (08:29)
[2021-12-26] MEDS: Cyanocobalamin (Vitamin B-12) 1,000 MCG TAB PO SCH (08:29)
[2021-12-26] MEDS: Aspirin 81 mg Enteric Coated Tablet PO SCH (08:29)
[2021-12-26] MEDS: Cholecalciferol 1,000 UNITS (25 MCG) TAB PO SCH (08:30)
[2021-12-26] MEDS: Carvedilol 3.125 MG TAB PO SCH ×2 (08:31→17:15)
[2021-12-26] MEDS: Magnesium Oxide 400 MG TAB PO SCH (08:32)
[2021-12-26] MEDS: Apixaban 5 MG TAB PO SCH ×2 (08:32→20:58)
[2021-12-26] MEDS: Lantus 1000 UNITS/10 ML VIAL SC SCH (08:32)
[2021-12-26] MEDS: HumaLOG 300 UNITS/3 ML VIAL SC PRN ×2 (12:27→17:54)
[2021-12-26] MEDS: Famotidine 20 MG TAB PO SCH (20:58)
[2021-12-26] MEDS: Cyclobenzaprine 10 MG TAB PO PRN (20:58)
[2021-12-26] MEDS: Atorvastatin Calcium 40 MG TAB PO SCH (20:58)
[2021-12-26] MEDS: hydrOXYzine 25 MG TAB PO PRN (20:59)
[2021-12-27] MEDS: traMADol HCl 50 MG TAB PO SCH ×4 (05:23→23:54)
[2021-12-27] MEDS: Linaclotide [Linzess] 290 MCG Capsule PO SCH (05:32)
[2021-12-27] MEDS: Cholecalciferol 1,000 UNITS (25 MCG) TAB PO SCH (08:12)
[2021-12-27] MEDS: Apixaban 5 MG TAB PO SCH ×2 (08:12→21:00)
[2021-12-27] MEDS: Cyanocobalamin (Vitamin B-12) 1,000 MCG TAB PO SCH (08:12)
[2021-12-27] MEDS: Carvedilol 3.125 MG TAB PO SCH ×2 (08:13→17:19)
[2021-12-27] MEDS: Magnesium Oxide 400 MG TAB PO SCH (08:13)
[2021-12-27] MEDS: Senokot 8.6 MG TAB PO SCH (08:13)
[2021-12-27] MEDS: Furosemide 20 MG TAB PO SCH (08:13)
[2021-12-27] MEDS: Multivitamin W/ Minerals 1 TAB PO SCH (08:13)
[2021-12-27] MEDS: Aspirin 81 mg Enteric Coated Tablet PO SCH (08:13)
[2021-12-27] MEDS: Lantus 1000 UNITS/10 ML VIAL SC SCH (08:14)
[2021-12-27] MEDS: Acetaminophen 325 MG TAB PO PRN (13:32)
[2021-12-27] MEDS: HumaLOG 300 UNITS/3 ML VIAL SC PRN ×2 (13:33→17:20)
[2021-12-27] MEDS: Atorvastatin Calcium 40 MG TAB PO SCH (21:00)
[2021-12-27] MEDS: Famotidine 20 MG TAB PO SCH (21:00)
[2021-12-27] MEDS: hydrOXYzine 25 MG TAB PO PRN (21:00)
[2021-12-28 05:19] LABS: Hemoglobin 9.4 g/dL (14.0-18.0); Platelet Count 262 thou/uL (130-400)
[2021-12-28] MEDS: Linaclotide [Linzess] 290 MCG Capsule PO SCH (05:19)
[2021-12-28] MEDS: traMADol HCl 50 MG TAB PO SCH ×2 (08:28→16:59)
[2021-12-28] MEDS: Cholecalciferol 1,000 UNITS (25 MCG) TAB PO SCH (08:28)
[2021-12-28] MEDS: Aspirin 81 mg Enteric Coated Tablet PO SCH (08:28)
[2021-12-28] MEDS: Lantus 1000 UNITS/10 ML VIAL SC SCH (08:29)
[2021-12-28] MEDS: Carvedilol 3.125 MG TAB PO SCH ×2 (08:29→16:59)
[2021-12-28] MEDS: Multivitamin W/ Minerals 1 TAB PO SCH (08:29)
[2021-12-28] MEDS: Magnesium Oxide 400 MG TAB PO SCH (08:29)
[2021-12-28] MEDS: Furosemide 20 MG TAB PO SCH (08:29)
[2021-12-28] MEDS: Cyanocobalamin (Vitamin B-12) 1,000 MCG TAB PO SCH (08:29)
[2021-12-28] MEDS: Senokot 8.6 MG TAB PO SCH (08:29)
[2021-12-28] MEDS: Apixaban 5 MG TAB PO SCH ×2 (08:29→21:45)
[2021-12-28] MEDS: HumaLOG 300 UNITS/3 ML VIAL SC PRN (13:21)
[2021-12-28] MEDS: Famotidine 20 MG TAB PO SCH (21:45)
[2021-12-28] MEDS: Atorvastatin Calcium 40 MG TAB PO SCH (21:45)
[2021-12-28] MEDS: hydrOXYzine 25 MG TAB PO PRN (21:45)
[2021-12-28] MEDS: Cyclobenzaprine 10 MG TAB PO PRN (21:47)
[2021-12-29] MEDS: traMADol HCl 50 MG TAB PO SCH ×3 (01:06→16:48)
[2021-12-29] MEDS: Linaclotide [Linzess] 290 MCG Capsule PO SCH (04:51)
[2021-12-29] MEDS: Cyanocobalamin (Vitamin B-12) 1,000 MCG TAB PO SCH (08:49)
[2021-12-29] MEDS: Lantus 1000 UNITS/10 ML VIAL SC SCH (08:49)
[2021-12-29] MEDS: Carvedilol 3.125 MG TAB PO SCH ×2 (08:50→16:49)
[2021-12-29] MEDS: Aspirin 81 mg Enteric Coated Tablet PO SCH (08:50)
[2021-12-29] MEDS: Furosemide 20 MG TAB PO SCH (08:50)
[2021-12-29] MEDS: Senokot 8.6 MG TAB PO SCH (08:50)
[2021-12-29] MEDS: Multivitamin W/ Minerals 1 TAB PO SCH (08:50)
[2021-12-29] MEDS: Apixaban 5 MG TAB PO SCH ×2 (08:50→20:34)
[2021-12-29] MEDS: Cholecalciferol 1,000 UNITS (25 MCG) TAB PO SCH (08:50)
[2021-12-29] MEDS: Magnesium Oxide 400 MG TAB PO SCH (08:50)
[2021-12-29] MEDS: Famotidine 20 MG TAB PO SCH (20:34)
[2021-12-29] MEDS: Atorvastatin Calcium 40 MG TAB PO SCH (20:34)
[2021-12-29] MEDS: hydrOXYzine 25 MG TAB PO PRN (20:34)
[2021-12-30] MEDS: traMADol HCl 50 MG TAB PO SCH ×3 (00:04→16:17)
[2021-12-30] MEDS: Linaclotide [Linzess] 290 MCG Capsule PO SCH (04:47)
[2021-12-30 05:18] LABS: Anion Gap 19 mmol/L (10-20); BUN (Urea Nitrogen) 28 mg/dL (8.4-25.7); Calc. Creatinine Clearance 72 mL/min (70-130); Calcium 8.4 mg/dL (7.8-10.44); Carbon Dioxide 20 mmol/L (23-31); Chloride 108 mmol/L (98-107); Glucose 110 mg/dL (83-110); Potassium 4.5 mmol/L (3.5-5.1); Sodium 142 mmol/L (136-145)
[2021-12-30] MEDS: Carvedilol 3.125 MG TAB PO SCH ×2 (09:14→16:18)
[2021-12-30] MEDS: Furosemide 20 MG TAB PO SCH (09:14)
[2021-12-30] MEDS: Aspirin 81 mg Enteric Coated Tablet PO SCH (09:14)
[2021-12-30] MEDS: Apixaban 5 MG TAB PO SCH ×2 (09:15→20:53)
[2021-12-30] MEDS: Senokot 8.6 MG TAB PO SCH (09:15)
[2021-12-30] MEDS: CALM MAG SUPPLEMENT PO PRN (09:16)
[2021-12-30] MEDS: Multivitamin W/ Minerals 1 TAB PO SCH (09:19)
[2021-12-30] MEDS: Cyanocobalamin (Vitamin B-12) 1,000 MCG TAB PO SCH (09:19)
[2021-12-30] MEDS: Magnesium Oxide 400 MG TAB PO SCH (09:19)
[2021-12-30] MEDS: Cholecalciferol 1,000 UNITS (25 MCG) TAB PO SCH (09:20)
[2021-12-30] MEDS: Lantus 1000 UNITS/10 ML VIAL SC SCH (09:21)
[2021-12-30] MEDS: HumaLOG 300 UNITS/3 ML VIAL SC PRN (18:14)
[2021-12-30] MEDS: Famotidine 20 MG TAB PO SCH (20:53)
[2021-12-30] MEDS: Atorvastatin Calcium 40 MG TAB PO SCH (20:53)
[2021-12-31] MEDS: Linaclotide [Linzess] 290 MCG Capsule PO SCH (05:18)
[2021-12-31] MEDS: traMADol HCl 50 MG TAB PO SCH ×4 (08:33→23:46)
[2021-12-31] MEDS: Carvedilol 3.125 MG TAB PO SCH ×2 (08:33→17:05)
[2021-12-31] MEDS: Furosemide 20 MG TAB PO SCH (08:34)
[2021-12-31] MEDS: Apixaban 5 MG TAB PO SCH ×2 (08:34→21:24)
[2021-12-31] MEDS: Senokot 8.6 MG TAB PO SCH (08:34)
[2021-12-31] MEDS: Aspirin 81 mg Enteric Coated Tablet PO SCH (08:34)
[2021-12-31] MEDS: Cyanocobalamin (Vitamin B-12) 1,000 MCG TAB PO SCH (08:36)
[2021-12-31] MEDS: Magnesium Oxide 400 MG TAB PO SCH (08:36)
[2021-12-31] MEDS: CALM MAG SUPPLEMENT PO SCH (08:36)
[2021-12-31] MEDS: Multivitamin W/ Minerals 1 TAB PO SCH (08:36)
[2021-12-31] MEDS: Cholecalciferol 1,000 UNITS (25 MCG) TAB PO SCH (08:36)
[2021-12-31] MEDS: Lantus 1000 UNITS/10 ML VIAL SC SCH (08:38)
[2021-12-31] MEDS: HumaLOG 300 UNITS/3 ML VIAL SC PRN ×2 (12:47→17:09)
[2021-12-31] MEDS: Famotidine 20 MG TAB PO SCH (21:24)
[2021-12-31] MEDS: Atorvastatin Calcium 40 MG TAB PO SCH (21:24)
[2022-01-01] MEDS: Linaclotide [Linzess] 290 MCG Capsule PO SCH (06:06)
[2022-01-01] MEDS: Lantus 1000 UNITS/10 ML VIAL SC SCH (09:22)
[2022-01-01] MEDS: Multivitamin W/ Minerals 1 TAB PO SCH (09:23)
[2022-01-01] MEDS: traMADol HCl 50 MG TAB PO SCH ×2 (09:23→16:31)
[2022-01-01] MEDS: Carvedilol 3.125 MG TAB PO SCH ×2 (09:24→16:30)
[2022-01-01] MEDS: Cholecalciferol 1,000 UNITS (25 MCG) TAB PO SCH (09:24)
[2022-01-01] MEDS: Furosemide 20 MG TAB PO SCH (09:24)
[2022-01-01] MEDS: Aspirin 81 mg Enteric Coated Tablet PO SCH (09:24)
[2022-01-01] MEDS: Senokot 8.6 MG TAB PO SCH (09:24)
[2022-01-01] MEDS: Cyanocobalamin (Vitamin B-12) 1,000 MCG TAB PO SCH (09:24)
[2022-01-01] MEDS: Magnesium Oxide 400 MG TAB PO SCH (09:24)
[2022-01-01] MEDS: CALM MAG SUPPLEMENT PO SCH (09:25)
[2022-01-01] MEDS: Apixaban 5 MG TAB PO SCH ×2 (09:25→22:11)
[2022-01-01] MEDS: HumaLOG 300 UNITS/3 ML VIAL SC PRN (17:33)
[2022-01-01] MEDS: Atorvastatin Calcium 40 MG TAB PO SCH (22:11)
[2022-01-01] MEDS: hydrOXYzine 25 MG TAB PO PRN (22:11)
[2022-01-01] MEDS: Famotidine 20 MG TAB PO SCH (22:11)
[2022-01-02] MEDS: Linaclotide [Linzess] 290 MCG Capsule PO SCH (05:00)
[2022-01-02] MEDS: Aspirin 81 mg Enteric Coated Tablet PO SCH (09:12)
[2022-01-02] MEDS: Cholecalciferol 1,000 UNITS (25 MCG) TAB PO SCH (09:13)
[2022-01-02] MEDS: Cyanocobalamin (Vitamin B-12) 1,000 MCG TAB PO SCH (09:13)
[2022-01-02] MEDS: Multivitamin W/ Minerals 1 TAB PO SCH (09:13)
[2022-01-02] MEDS: Carvedilol 3.125 MG TAB PO SCH ×2 (09:13→16:42)
[2022-01-02] MEDS: traMADol HCl 50 MG TAB PO SCH ×3 (09:14→16:41)
[2022-01-02] MEDS: Furosemide 20 MG TAB PO SCH (09:15)
[2022-01-02] MEDS: Magnesium Oxide 400 MG TAB PO SCH (09:15)
[2022-01-02] MEDS: Apixaban 5 MG TAB PO SCH ×2 (09:15→20:22)
[2022-01-02] MEDS: Lantus 1000 UNITS/10 ML VIAL SC SCH (09:16)
[2022-01-02] MEDS: Senokot 8.6 MG TAB PO SCH (09:21)
[2022-01-02] MEDS: CALM MAG SUPPLEMENT PO SCH (09:21)
[2022-01-02] MEDS: HumaLOG 300 UNITS/3 ML VIAL SC PRN ×3 (12:18→20:23)
[2022-01-02] MEDS: Atorvastatin Calcium 40 MG TAB PO SCH (20:22)
[2022-01-02] MEDS: Famotidine 20 MG TAB PO SCH (20:23)
[2022-01-03] MEDS: traMADol HCl 50 MG TAB PO SCH (00:06)
[2022-01-03] MEDS: Linaclotide [Linzess] 290 MCG Capsule PO SCH (05:08)
[2022-01-03] MEDS: Lantus 1000 UNITS/10 ML VIAL SC SCH (09:18)
[2022-01-03] MEDS: Aspirin 81 mg Enteric Coated Tablet PO SCH (09:19)
[2022-01-03] MEDS: Carvedilol 3.125 MG TAB PO SCH ×2 (09:19→17:14)
[2022-01-03] MEDS: Cyanocobalamin (Vitamin B-12) 1,000 MCG TAB PO SCH (09:19)
[2022-01-03] MEDS: CALM MAG SUPPLEMENT PO SCH (09:20)
[2022-01-03] MEDS: Furosemide 20 MG TAB PO SCH (09:20)
[2022-01-03] MEDS: Acetaminophen 325 MG TAB PO PRN (09:20)
[2022-01-03] MEDS: Apixaban 5 MG TAB PO SCH ×2 (09:20→21:01)
[2022-01-03] MEDS: Magnesium Oxide 400 MG TAB PO SCH (09:20)
[2022-01-03] MEDS: Multivitamin W/ Minerals 1 TAB PO SCH (09:20)
[2022-01-03] MEDS: Cholecalciferol 1,000 UNITS (25 MCG) TAB PO SCH (09:20)
[2022-01-03] MEDS: Senokot 8.6 MG TAB PO SCH ×2 (09:20→21:04)
[2022-01-03] MEDS: HumaLOG 300 UNITS/3 ML VIAL SC PRN ×2 (12:20→17:12)
[2022-01-03] MEDS: Atorvastatin Calcium 40 MG TAB PO SCH (21:01)
[2022-01-03] MEDS: Famotidine 20 MG TAB PO SCH (21:01)
[2022-01-04] MEDS: Cyclobenzaprine 10 MG TAB PO PRN ×2 (00:26→20:16)
[2022-01-04] MEDS: Linaclotide [Linzess] 290 MCG Capsule PO SCH (06:12)
[2022-01-04] MEDS: Lantus 1000 UNITS/10 ML VIAL SC SCH (08:32)
[2022-01-04] MEDS: Magnesium Oxide 400 MG TAB PO SCH (08:34)
[2022-01-04] MEDS: Aspirin 81 mg Enteric Coated Tablet PO SCH (08:34)
[2022-01-04] MEDS: Cyanocobalamin (Vitamin B-12) 1,000 MCG TAB PO SCH (08:34)
[2022-01-04] MEDS: Cholecalciferol 1,000 UNITS (25 MCG) TAB PO SCH (08:34)
[2022-01-04] MEDS: Multivitamin W/ Minerals 1 TAB PO SCH (08:34)
[2022-01-04] MEDS: Acetaminophen 325 MG TAB PO PRN (08:35)
[2022-01-04] MEDS: Furosemide 20 MG TAB PO SCH (08:35)
[2022-01-04] MEDS: Apixaban 5 MG TAB PO SCH ×2 (08:35→20:16)
[2022-01-04] MEDS: Carvedilol 3.125 MG TAB PO SCH ×2 (08:35→17:12)
[2022-01-04] MEDS: CALM MAG SUPPLEMENT PO SCH (08:36)
[2022-01-04] MEDS: Senokot 8.6 MG TAB PO SCH (08:37)
[2022-01-04] MEDS: HumaLOG 300 UNITS/3 ML VIAL SC PRN (12:53)
[2022-01-04] MEDS: Famotidine 20 MG TAB PO SCH (20:16)
[2022-01-04] MEDS: Atorvastatin Calcium 40 MG TAB PO SCH (20:16)
[2022-01-05] MEDS: traMADol HCl 50 MG TAB PO PRN ×2 (00:08→21:22)
[2022-01-05] MEDS: hydrOXYzine 25 MG TAB PO PRN (00:09)
[2022-01-05] MEDS: Linaclotide [Linzess] 290 MCG Capsule PO SCH (04:16)
[2022-01-05] MEDS: Cyanocobalamin (Vitamin B-12) 1,000 MCG TAB PO SCH (10:13)
[2022-01-05] MEDS: Furosemide 20 MG TAB PO SCH (10:14)
[2022-01-05] MEDS: Multivitamin W/ Minerals 1 TAB PO SCH (10:15)
[2022-01-05] MEDS: Aspirin 81 mg Enteric Coated Tablet PO SCH (10:15)
[2022-01-05] MEDS: Apixaban 5 MG TAB PO SCH ×2 (10:15→21:19)
[2022-01-05] MEDS: Cholecalciferol 1,000 UNITS (25 MCG) TAB PO SCH (10:15)
[2022-01-05] MEDS: Senokot 8.6 MG TAB PO SCH (10:15)
[2022-01-05] MEDS: Carvedilol 3.125 MG TAB PO SCH ×2 (10:16→17:00)
[2022-01-05] MEDS: Magnesium Oxide 400 MG TAB PO SCH (10:18)
[2022-01-05] MEDS: CALM MAG SUPPLEMENT PO SCH (10:23)
[2022-01-05] MEDS: Lantus 1000 UNITS/10 ML VIAL SC SCH (10:27)
[2022-01-05] MEDS: Acetaminophen 325 MG TAB PO PRN (16:26)
[2022-01-05] MEDS: Cyclobenzaprine 10 MG TAB PO PRN (16:58)
[2022-01-05] MEDS: HumaLOG 300 UNITS/3 ML VIAL SC PRN (17:00)
[2022-01-05] MEDS: Famotidine 20 MG TAB PO SCH (21:19)
[2022-01-05] MEDS: Atorvastatin Calcium 40 MG TAB PO SCH (21:19)
[2022-01-06] MEDS: Linaclotide [Linzess] 290 MCG Capsule PO SCH (05:00)
[2022-01-06] MEDS: Aspirin 81 mg Enteric Coated Tablet PO SCH (09:45)
[2022-01-06] MEDS: Multivitamin W/ Minerals 1 TAB PO SCH (09:45)
[2022-01-06] MEDS: Carvedilol 3.125 MG TAB PO SCH ×2 (09:45→18:20)
[2022-01-06] MEDS: Furosemide 20 MG TAB PO SCH (09:45)
[2022-01-06] MEDS: Cyanocobalamin (Vitamin B-12) 1,000 MCG TAB PO SCH (09:46)
[2022-01-06] MEDS: Magnesium Oxide 400 MG TAB PO SCH (09:46)
[2022-01-06] MEDS: Cholecalciferol 1,000 UNITS (25 MCG) TAB PO SCH (09:46)
[2022-01-06] MEDS: Senokot 8.6 MG TAB PO SCH (09:46)
[2022-01-06] MEDS: Apixaban 5 MG TAB PO SCH ×2 (09:46→21:29)
[2022-01-06] MEDS: Acetaminophen 325 MG TAB PO PRN ×2 (09:54→13:28)
[2022-01-06] MEDS: Lantus 1000 UNITS/10 ML VIAL SC SCH (09:55)
[2022-01-06] MEDS: HumaLOG 300 UNITS/3 ML VIAL SC PRN ×2 (13:15→18:21)
[2022-01-06] MEDS: CALM MAG SUPPLEMENT PO SCH (16:50)
[2022-01-06] MEDS: Famotidine 20 MG TAB PO SCH (21:29)
[2022-01-06] MEDS: hydrOXYzine 25 MG TAB PO PRN (21:30)
[2022-01-06] MEDS: Cyclobenzaprine 10 MG TAB PO PRN (21:30)
[2022-01-07] MEDS: Linaclotide [Linzess] 290 MCG Capsule PO SCH (04:51)
[2022-01-07] MEDS: Furosemide 20 MG TAB PO SCH (09:16)
[2022-01-07] MEDS: Cholecalciferol 1,000 UNITS (25 MCG) TAB PO SCH (09:16)
[2022-01-07] MEDS: Cyanocobalamin (Vitamin B-12) 1,000 MCG TAB PO SCH (09:16)
[2022-01-07] MEDS: Acetaminophen 325 MG TAB PO PRN ×3 (09:17→20:23)
[2022-01-07] MEDS: Carvedilol 3.125 MG TAB PO SCH ×2 (09:17→17:47)
[2022-01-07] MEDS: Apixaban 5 MG TAB PO SCH ×2 (09:17→20:22)
[2022-01-07] MEDS: Magnesium Oxide 400 MG TAB PO SCH (09:17)
[2022-01-07] MEDS: Senokot 8.6 MG TAB PO SCH (09:17)
[2022-01-07] MEDS: Aspirin 81 mg Enteric Coated Tablet PO SCH (09:17)
[2022-01-07] MEDS: Multivitamin W/ Minerals 1 TAB PO SCH (09:17)
[2022-01-07] MEDS: Lantus 1000 UNITS/10 ML VIAL SC SCH (09:19)
[2022-01-07] MEDS: HumaLOG 300 UNITS/3 ML VIAL SC PRN ×2 (12:29→17:48)
[2022-01-07] MEDS: CALM MAG SUPPLEMENT PO SCH (17:48)
[2022-01-07] MEDS: Atorvastatin Calcium 40 MG TAB PO SCH (20:22)
[2022-01-07] MEDS: Cyclobenzaprine 10 MG TAB PO PRN (20:22)
[2022-01-07] MEDS: Famotidine 20 MG TAB PO SCH (20:22)
[2022-01-07] MEDS: hydrOXYzine 25 MG TAB PO PRN (20:22)
[2022-01-08] MEDS: Linaclotide [Linzess] 290 MCG Capsule PO SCH (05:32)
[2022-01-08] MEDS: Cholecalciferol 1,000 UNITS (25 MCG) TAB PO SCH (08:55)
[2022-01-08] MEDS: Multivitamin W/ Minerals 1 TAB PO SCH (08:55)
[2022-01-08] MEDS: Cyanocobalamin (Vitamin B-12) 1,000 MCG TAB PO SCH (08:56)
[2022-01-08] MEDS: Aspirin 81 mg Enteric Coated Tablet PO SCH (08:56)
[2022-01-08] MEDS: Carvedilol 3.125 MG TAB PO SCH ×2 (08:56→16:03)
[2022-01-08] MEDS: Magnesium Oxide 400 MG TAB PO SCH (08:56)
[2022-01-08] MEDS: Apixaban 5 MG TAB PO SCH ×2 (08:56→21:13)
[2022-01-08] MEDS: Furosemide 20 MG TAB PO SCH (08:56)
[2022-01-08] MEDS: Senokot 8.6 MG TAB PO SCH (08:56)
[2022-01-08] MEDS: Lantus 1000 UNITS/10 ML VIAL SC SCH (08:56)
[2022-01-08] MEDS: CALM MAG SUPPLEMENT PO SCH (09:04)
[2022-01-08] MEDS: HumaLOG 300 UNITS/3 ML VIAL SC PRN (11:59)
[2022-01-08] MEDS: Atorvastatin Calcium 40 MG TAB PO SCH (21:13)
[2022-01-08] MEDS: Famotidine 20 MG TAB PO SCH (21:13)
[2022-01-08] MEDS: hydrOXYzine 25 MG TAB PO PRN (21:13)
[2022-01-09] MEDS: Linaclotide [Linzess] 290 MCG Capsule PO SCH (05:09)
[2022-01-09] MEDS: Cyanocobalamin (Vitamin B-12) 1,000 MCG TAB PO SCH (10:02)
[2022-01-09] MEDS: Furosemide 20 MG TAB PO SCH (10:04)
[2022-01-09] MEDS: Cholecalciferol 1,000 UNITS (25 MCG) TAB PO SCH (10:04)
[2022-01-09] MEDS: Magnesium Oxide 400 MG TAB PO SCH (10:04)
[2022-01-09] MEDS: CALM MAG SUPPLEMENT PO SCH (10:05)
[2022-01-09] MEDS: Apixaban 5 MG TAB PO SCH ×2 (10:05→20:43)
[2022-01-09] MEDS: Carvedilol 3.125 MG TAB PO SCH ×2 (10:05→17:33)
[2022-01-09] MEDS: Aspirin 81 mg Enteric Coated Tablet PO SCH (10:05)
[2022-01-09] MEDS: Multivitamin W/ Minerals 1 TAB PO SCH (10:05)
[2022-01-09] MEDS: Senokot 8.6 MG TAB PO SCH (10:08)
[2022-01-09] MEDS: Lantus 1000 UNITS/10 ML VIAL SC SCH (10:11)
[2022-01-09] MEDS: HumaLOG 300 UNITS/3 ML VIAL SC PRN ×2 (12:52→17:32)
[2022-01-09] MEDS: Cyclobenzaprine 10 MG TAB PO PRN (20:42)
[2022-01-09] MEDS: hydrOXYzine 25 MG TAB PO PRN (20:42)
[2022-01-09] MEDS: Atorvastatin Calcium 40 MG TAB PO SCH (20:43)
[2022-01-09] MEDS: Famotidine 20 MG TAB PO SCH (20:43)
[2022-01-10] MEDS: Linaclotide [Linzess] 290 MCG Capsule PO SCH (05:37)
[2022-01-10] MEDS: Lantus 1000 UNITS/10 ML VIAL SC SCH (09:13)
[2022-01-10] MEDS: Cholecalciferol 1,000 UNITS (25 MCG) TAB PO SCH (09:15)
[2022-01-10] MEDS: Aspirin 81 mg Enteric Coated Tablet PO SCH (09:15)
[2022-01-10] MEDS: Multivitamin W/ Minerals 1 TAB PO SCH (09:15)
[2022-01-10] MEDS: Senokot 8.6 MG TAB PO SCH (09:15)
[2022-01-10] MEDS: Magnesium Oxide 400 MG TAB PO SCH (09:15)
[2022-01-10] MEDS: Tamsulosin HCl 0.4 MG CAP PO SCH (09:15)
[2022-01-10] MEDS: Cyanocobalamin (Vitamin B-12) 1,000 MCG TAB PO SCH (09:15)
[2022-01-10] MEDS: Carvedilol 3.125 MG TAB PO SCH ×2 (09:16→17:14)
[2022-01-10] MEDS: CALM MAG SUPPLEMENT PO SCH (09:16)
[2022-01-10] MEDS: Furosemide 20 MG TAB PO SCH (09:16)
[2022-01-10] MEDS: Apixaban 5 MG TAB PO SCH ×2 (09:16→20:44)
[2022-01-10] MEDS: Acetaminophen 325 MG TAB PO PRN (12:53)
[2022-01-10] MEDS: Cyclobenzaprine 10 MG TAB PO PRN ×2 (14:13→20:43)
[2022-01-10] MEDS: HumaLOG 300 UNITS/3 ML VIAL SC PRN (17:14)
[2022-01-10] MEDS: Famotidine 20 MG TAB PO SCH (20:44)
[2022-01-10] MEDS: Atorvastatin Calcium 40 MG TAB PO SCH (20:44)
[2022-01-10] MEDS: hydrOXYzine 25 MG TAB PO PRN (20:44)
[2022-01-11] MEDS: Linaclotide [Linzess] 290 MCG Capsule PO SCH (05:38)
[2022-01-11] MEDS: Cholecalciferol 1,000 UNITS (25 MCG) TAB PO SCH (09:19)
[2022-01-11] MEDS: Cyanocobalamin (Vitamin B-12) 1,000 MCG TAB PO SCH (09:19)
[2022-01-11] MEDS: Senokot 8.6 MG TAB PO SCH (09:20)
[2022-01-11] MEDS: CALM MAG SUPPLEMENT PO SCH (09:20)
[2022-01-11] MEDS: Tamsulosin HCl 0.4 MG CAP PO SCH (09:20)
[2022-01-11] MEDS: Carvedilol 3.125 MG TAB PO SCH ×2 (09:20→17:21)
[2022-01-11] MEDS: Magnesium Oxide 400 MG TAB PO SCH (09:20)
[2022-01-11] MEDS: Multivitamin W/ Minerals 1 TAB PO SCH (09:20)
[2022-01-11] MEDS: Furosemide 20 MG TAB PO SCH (09:20)
[2022-01-11] MEDS: Aspirin 81 mg Enteric Coated Tablet PO SCH (09:20)
[2022-01-11] MEDS: Apixaban 5 MG TAB PO SCH ×2 (09:20→20:32)
[2022-01-11] MEDS: Lantus 1000 UNITS/10 ML VIAL SC SCH (09:21)
[2022-01-11] MEDS: Cyclobenzaprine 10 MG TAB PO PRN ×2 (10:43→20:35)
[2022-01-11] MEDS: Acetaminophen 325 MG TAB PO PRN (11:48)
[2022-01-11] MEDS: HumaLOG 300 UNITS/3 ML VIAL SC PRN ×2 (13:09→17:22)
[2022-01-11] MEDS: Atorvastatin Calcium 40 MG TAB PO SCH (20:31)
[2022-01-11] MEDS: Famotidine 20 MG TAB PO SCH (20:31)
[2022-01-11] MEDS: hydrOXYzine 25 MG TAB PO PRN (20:35)
[2022-01-12] MEDS: traMADol HCl 50 MG TAB PO PRN (00:04)
[2022-01-12] MEDS: Linaclotide [Linzess] 290 MCG Capsule PO SCH (04:59)
[2022-01-12] MEDS: Apixaban 5 MG TAB PO SCH ×2 (09:29→21:08)
[2022-01-12] MEDS: Cyanocobalamin (Vitamin B-12) 1,000 MCG TAB PO SCH (09:30)
[2022-01-12] MEDS: Magnesium Oxide 400 MG TAB PO SCH (09:31)
[2022-01-12] MEDS: Multivitamin W/ Minerals 1 TAB PO SCH (09:31)
[2022-01-12] MEDS: Carvedilol 3.125 MG TAB PO SCH ×2 (09:31→17:15)
[2022-01-12] MEDS: Aspirin 81 mg Enteric Coated Tablet PO SCH (09:31)
[2022-01-12] MEDS: Cholecalciferol 1,000 UNITS (25 MCG) TAB PO SCH (09:31)
[2022-01-12] MEDS: Furosemide 20 MG TAB PO SCH (09:31)
[2022-01-12] MEDS: Tamsulosin HCl 0.4 MG CAP PO SCH (09:32)
[2022-01-12] MEDS: Senokot 8.6 MG TAB PO SCH (09:33)
[2022-01-12] MEDS: Lantus 1000 UNITS/10 ML VIAL SC SCH (09:38)
[2022-01-12] MEDS: Acetaminophen 325 MG TAB PO PRN ×2 (09:43→13:16)
[2022-01-12] MEDS: HumaLOG 300 UNITS/3 ML VIAL SC PRN (12:28)
[2022-01-12] MEDS: CALM MAG SUPPLEMENT PO SCH (13:18)
[2022-01-12] MEDS: Atorvastatin Calcium 40 MG TAB PO SCH (21:08)
[2022-01-12] MEDS: Famotidine 20 MG TAB PO SCH (21:08)
[2022-01-12] MEDS: hydrOXYzine 25 MG TAB PO PRN (21:08)
[2022-01-12] MEDS: Cyclobenzaprine 10 MG TAB PO PRN (21:08)
[2022-01-13] MEDS: Linaclotide [Linzess] 290 MCG Capsule PO SCH (05:20)
[2022-01-13] MEDS: Carvedilol 3.125 MG TAB PO SCH ×2 (10:25→18:16)
[2022-01-13] MEDS: Cholecalciferol 1,000 UNITS (25 MCG) TAB PO SCH (10:26)
[2022-01-13] MEDS: Tamsulosin HCl 0.4 MG CAP PO SCH (10:26)
[2022-01-13] MEDS: Furosemide 20 MG TAB PO SCH (10:26)
[2022-01-13] MEDS: Senokot 8.6 MG TAB PO SCH (10:26)
[2022-01-13] MEDS: Apixaban 5 MG TAB PO SCH ×2 (10:26→21:40)
[2022-01-13] MEDS: Multivitamin W/ Minerals 1 TAB PO SCH (10:27)
[2022-01-13] MEDS: Cyanocobalamin (Vitamin B-12) 1,000 MCG TAB PO SCH (10:28)
[2022-01-13] MEDS: Magnesium Oxide 400 MG TAB PO SCH (10:29)
[2022-01-13] MEDS: Aspirin 81 mg Enteric Coated Tablet PO SCH (10:29)
[2022-01-13] MEDS: Lantus 1000 UNITS/10 ML VIAL SC SCH (10:30)
[2022-01-13] MEDS: CALM MAG SUPPLEMENT PO SCH (10:30)
[2022-01-13] MEDS: HumaLOG 300 UNITS/3 ML VIAL SC PRN ×2 (14:24→18:17)
[2022-01-13] MEDS: Cyclobenzaprine 10 MG TAB PO PRN ×2 (15:10→21:42)
[2022-01-13] MEDS: Acetaminophen 325 MG TAB PO PRN ×2 (15:10→21:42)
[2022-01-13] MEDS: Famotidine 20 MG TAB PO SCH (21:40)
[2022-01-13] MEDS: Atorvastatin Calcium 40 MG TAB PO SCH (21:40)
[2022-01-14 05:44] LABS: #Basophils 0.1 thou/uL (0.0-0.2); #Eosinphils 0.4 thou/uL (0.0-0.7); #Lymphocytes 1.3 thou/uL (1.20-3.40); #Monocytes 0.6 thou/uL (0.11-0.59); #Neutrophils 2.5 thou/uL (1.40-6.50); %Basophils 2.1 % (0.0-1.0); %Eosinophils 8.1 % (0.0-10.0); %Lymphocytes 26.4 % (21.0-51.0); %Neutrophils 51.5 % (42.0-75.0); Hemoglobin 9.4 g/dL (14.0-18.0); Mean Corpuscular HGB CONC 33.8 g/dL (32.0-36.0); Mean Corpuscular Hemoglobin 33.6 pg (27.0-31.0); Mean Corpuscular Volume 99.4 fL (78.0-98.0); Mean Platelet Volume 6.8 fL (7.4-10.4); Platelet Count 182 thou/uL (130-400); RBC Distribution Width 13.5 % (11.5-14.5); White Blood Cell (WBC) Count 4.9 thou/uL (4.8-10.8)
[2022-01-14] MEDS: Linaclotide [Linzess] 290 MCG Capsule PO SCH (06:01)
[2022-01-14 06:04] LABS: ALT (SGPT) 12 U/L (8-55); AST (SGOT) 17 U/L (5-34); Albumin 2.9 g/dL (3.4-4.8); Alkaline Phosphatase 139 U/L (40-110); Anion Gap 14 mmol/L (10-20); BUN (Urea Nitrogen) 36 mg/dL (8.4-25.7); Bilirubin, Total 0.6 mg/dL (0.2-1.2); Calc. Creatinine Clearance 64 mL/min (70-130); Calcium 8.3 mg/dL (7.8-10.44); Carbon Dioxide 25 mmol/L (23-31); Chloride 109 mmol/L (98-107); Globulin 2.9 g/dL (2.4-3.5); Potassium 4.3 mmol/L (3.5-5.1); Protein, Total 5.8 g/dL (5.8-8.1); Sodium 144 mmol/L (136-145)
[2022-01-14 06:12] LABS: Glucose 58 mg/dL (83-110)
[2022-01-14] MEDS ORDERED: Simethicone Chewable 80 MG TAB PO PRN (07:13)
[2022-01-14] MEDS: Cyanocobalamin (Vitamin B-12) 1,000 MCG TAB PO SCH ×2 (08:23→08:33)
[2022-01-14] MEDS: Cholecalciferol 1,000 UNITS (25 MCG) TAB PO SCH (08:24)
[2022-01-14] MEDS: Multivitamin W/ Minerals 1 TAB PO SCH (08:25)
[2022-01-14] MEDS: Senokot 8.6 MG TAB PO SCH (08:25)
[2022-01-14] MEDS: Furosemide 20 MG TAB PO SCH (08:26)
[2022-01-14] MEDS: Apixaban 5 MG TAB PO SCH ×2 (08:26→21:00)
[2022-01-14] MEDS: Tamsulosin HCl 0.4 MG CAP PO SCH (08:26)
[2022-01-14] MEDS: Aspirin 81 mg Enteric Coated Tablet PO SCH (08:26)
[2022-01-14] MEDS: Carvedilol 3.125 MG TAB PO SCH ×2 (08:27→16:43)
[2022-01-14] MEDS: Magnesium Oxide 400 MG TAB PO SCH (08:27)
[2022-01-14] MEDS: Lantus 1000 UNITS/10 ML VIAL SC SCH (08:28)
[2022-01-14] MEDS: CALM MAG SUPPLEMENT PO SCH (08:34)
[2022-01-14] MEDS: HumaLOG 300 UNITS/3 ML VIAL SC PRN ×2 (11:58→16:59)
[2022-01-14] MEDS: Atorvastatin Calcium 40 MG TAB PO SCH (21:01)
[2022-01-14] MEDS: Famotidine 20 MG TAB PO SCH (21:01)
[2022-01-14] MEDS: Acetaminophen 325 MG TAB PO PRN (22:15)
[2022-01-14] MEDS: Cyclobenzaprine 10 MG TAB PO PRN (22:16)
[2022-01-15] MEDS: Linaclotide [Linzess] 290 MCG Capsule PO SCH (05:31)
[2022-01-15] MEDS: Lantus 1000 UNITS/10 ML VIAL SC SCH (09:58)
[2022-01-15] MEDS: Aspirin 81 mg Enteric Coated Tablet PO SCH (10:00)
[2022-01-15] MEDS: Cyanocobalamin (Vitamin B-12) 1,000 MCG TAB PO SCH (10:00)
[2022-01-15] MEDS: Apixaban 5 MG TAB PO SCH ×2 (10:00→21:18)
[2022-01-15] MEDS: Furosemide 20 MG TAB PO SCH (10:00)
[2022-01-15] MEDS: Cholecalciferol 1,000 UNITS (25 MCG) TAB PO SCH (10:00)
[2022-01-15] MEDS: Senokot 8.6 MG TAB PO SCH (10:01)
[2022-01-15] MEDS: Multivitamin W/ Minerals 1 TAB PO SCH (10:01)
[2022-01-15] MEDS: Magnesium Oxide 400 MG TAB PO SCH (10:01)
[2022-01-15] MEDS: Carvedilol 3.125 MG TAB PO SCH ×2 (10:01→17:12)
[2022-01-15] MEDS: Tamsulosin HCl 0.4 MG CAP PO SCH (10:02)
[2022-01-15] MEDS: CALM MAG SUPPLEMENT PO SCH (10:02)
[2022-01-15] MEDS: HumaLOG 300 UNITS/3 ML VIAL SC PRN ×2 (12:08→17:12)
[2022-01-15] MEDS: Atorvastatin Calcium 40 MG TAB PO SCH (21:18)
[2022-01-15] MEDS: Famotidine 20 MG TAB PO SCH (21:18)
[2022-01-16] MEDS: Cyclobenzaprine 10 MG TAB PO PRN (00:11)
[2022-01-16] MEDS: Acetaminophen 325 MG TAB PO PRN (00:11)
[2022-01-16] MEDS: Linaclotide [Linzess] 290 MCG Capsule PO SCH (05:34)
[2022-01-16] MEDS: Cholecalciferol 1,000 UNITS (25 MCG) TAB PO SCH (09:34)
[2022-01-16] MEDS: Carvedilol 3.125 MG TAB PO SCH ×2 (09:34→17:14)
[2022-01-16] MEDS: Cyanocobalamin (Vitamin B-12) 1,000 MCG TAB PO SCH (09:35)
[2022-01-16] MEDS: Apixaban 5 MG TAB PO SCH ×2 (09:35→21:10)
[2022-01-16] MEDS: Tamsulosin HCl 0.4 MG CAP PO SCH (09:35)
[2022-01-16] MEDS: Furosemide 20 MG TAB PO SCH (09:35)
[2022-01-16] MEDS: Magnesium Oxide 400 MG TAB PO SCH (09:35)
[2022-01-16] MEDS: Aspirin 81 mg Enteric Coated Tablet PO SCH (09:37)
[2022-01-16] MEDS: Multivitamin W/ Minerals 1 TAB PO SCH (09:37)
[2022-01-16] MEDS: Senokot 8.6 MG TAB PO SCH (09:37)
[2022-01-16] MEDS: Lantus 1000 UNITS/10 ML VIAL SC SCH ×2 (09:42→09:44)
[2022-01-16] MEDS: CALM MAG SUPPLEMENT PO SCH (09:45)
[2022-01-16] MEDS: HumaLOG 300 UNITS/3 ML VIAL SC PRN ×2 (12:21→17:14)
[2022-01-16] MEDS: Famotidine 20 MG TAB PO SCH (21:10)
[2022-01-16] MEDS: Atorvastatin Calcium 40 MG TAB PO SCH (21:10)
[2022-01-17] MEDS: Linaclotide [Linzess] 290 MCG Capsule PO SCH (05:06)
[2022-01-17] MEDS: Cyanocobalamin (Vitamin B-12) 1,000 MCG TAB PO SCH (09:52)
[2022-01-17] MEDS: Aspirin 81 mg Enteric Coated Tablet PO SCH (09:53)
[2022-01-17] MEDS: Furosemide 20 MG TAB PO SCH (09:53)
[2022-01-17] MEDS: Senokot 8.6 MG TAB PO SCH (09:53)
[2022-01-17] MEDS: Multivitamin W/ Minerals 1 TAB PO SCH (09:53)
[2022-01-17] MEDS: Carvedilol 3.125 MG TAB PO SCH ×2 (09:54→16:03)
[2022-01-17] MEDS: Cholecalciferol 1,000 UNITS (25 MCG) TAB PO SCH (09:54)
[2022-01-17] MEDS: Apixaban 5 MG TAB PO SCH ×2 (09:54→20:28)
[2022-01-17] MEDS: Tamsulosin HCl 0.4 MG CAP PO SCH (09:54)
[2022-01-17] MEDS: Magnesium Oxide 400 MG TAB PO SCH (09:54)
[2022-01-17] MEDS: Lantus 1000 UNITS/10 ML VIAL SC SCH (09:57)
[2022-01-17] MEDS: HumaLOG 300 UNITS/3 ML VIAL SC PRN ×2 (12:29→20:29)
[2022-01-17] MEDS: Acetaminophen 325 MG TAB PO PRN ×2 (16:02→21:41)
[2022-01-17] MEDS: CALM MAG SUPPLEMENT PO SCH (16:03)
[2022-01-17] MEDS: Famotidine 20 MG TAB PO SCH (20:27)
[2022-01-17] MEDS: Atorvastatin Calcium 40 MG TAB PO SCH (20:27)
[2022-01-18] MEDS: Linaclotide [Linzess] 290 MCG Capsule PO SCH (05:20)
[2022-01-18] MEDS: Acetaminophen 325 MG TAB PO PRN ×3 (09:43→23:32)
[2022-01-18] MEDS: Lantus 1000 UNITS/10 ML VIAL SC SCH (09:43)
[2022-01-18] MEDS: Magnesium Oxide 400 MG TAB PO SCH (09:45)
[2022-01-18] MEDS: Cholecalciferol 1,000 UNITS (25 MCG) TAB PO SCH (09:45)
[2022-01-18] MEDS: Aspirin 81 mg Enteric Coated Tablet PO SCH (09:45)
[2022-01-18] MEDS: Tamsulosin HCl 0.4 MG CAP PO SCH (09:45)
[2022-01-18] MEDS: Senokot 8.6 MG TAB PO SCH (09:45)
[2022-01-18] MEDS: Carvedilol 3.125 MG TAB PO SCH ×2 (09:45→17:57)
[2022-01-18] MEDS: Apixaban 5 MG TAB PO SCH ×2 (09:46→20:58)
[2022-01-18] MEDS: Cyanocobalamin (Vitamin B-12) 1,000 MCG TAB PO SCH (09:46)
[2022-01-18] MEDS: Multivitamin W/ Minerals 1 TAB PO SCH (09:46)
[2022-01-18] MEDS: CALM MAG SUPPLEMENT PO SCH (09:46)
[2022-01-18] MEDS: Furosemide 20 MG TAB PO SCH (09:46)
[2022-01-18] MEDS: HumaLOG 300 UNITS/3 ML VIAL SC PRN ×2 (13:06→17:57)
[2022-01-18] MEDS: Cyclobenzaprine 10 MG TAB PO PRN ×2 (15:19→23:31)
[2022-01-18] MEDS: hydrOXYzine 25 MG TAB PO PRN (20:58)
[2022-01-18] MEDS: Famotidine 20 MG TAB PO SCH (20:59)
[2022-01-18] MEDS: Atorvastatin Calcium 40 MG TAB PO SCH (20:59)
[2022-01-19] MEDS: Linaclotide [Linzess] 290 MCG Capsule PO SCH (04:59)
[2022-01-19] MEDS: Aspirin 81 mg Enteric Coated Tablet PO SCH (09:13)
[2022-01-19] MEDS: Cyanocobalamin (Vitamin B-12) 1,000 MCG TAB PO SCH (09:14)
[2022-01-19] MEDS: Apixaban 5 MG TAB PO SCH ×2 (09:14→21:26)
[2022-01-19] MEDS: Magnesium Oxide 400 MG TAB PO SCH (09:14)
[2022-01-19] MEDS: Tamsulosin HCl 0.4 MG CAP PO SCH (09:14)
[2022-01-19] MEDS: Cholecalciferol 1,000 UNITS (25 MCG) TAB PO SCH (09:14)
[2022-01-19] MEDS: Furosemide 20 MG TAB PO SCH (09:14)
[2022-01-19] MEDS: Senokot 8.6 MG TAB PO SCH (09:15)
[2022-01-19] MEDS: Multivitamin W/ Minerals 1 TAB PO SCH (09:15)
[2022-01-19] MEDS: Carvedilol 3.125 MG TAB PO SCH ×2 (09:15→17:52)
[2022-01-19] MEDS: Lantus 1000 UNITS/10 ML VIAL SC SCH (09:36)
[2022-01-19] MEDS: CALM MAG SUPPLEMENT PO SCH (10:09)
[2022-01-19] MEDS ORDERED: traMADol HCl 50 MG TAB PO PRN (11:31)
[2022-01-19] MEDS: HumaLOG 300 UNITS/3 ML VIAL SC PRN ×2 (12:50→17:52)
[2022-01-19] MEDS: Acetaminophen 325 MG TAB PO PRN ×2 (12:51→21:25)
[2022-01-19] MEDS: Famotidine 20 MG TAB PO SCH (21:26)
[2022-01-19] MEDS: Atorvastatin Calcium 40 MG TAB PO SCH (21:26)
[2022-01-20] MEDS: Linaclotide [Linzess] 290 MCG Capsule PO SCH (05:43)
[2022-01-20] MEDS: Ubidecarenone 50 MG CAP PO SCH (11:05)
[2022-01-20] MEDS: Lantus 1000 UNITS/10 ML VIAL SC SCH (11:05)
[2022-01-20] MEDS: Cholecalciferol 1,000 UNITS (25 MCG) TAB PO SCH (11:06)
[2022-01-20] MEDS: Apixaban 5 MG TAB PO SCH ×2 (11:06→21:11)
[2022-01-20] MEDS: Aspirin 81 mg Enteric Coated Tablet PO SCH (11:06)
[2022-01-20] MEDS: Cyanocobalamin (Vitamin B-12) 1,000 MCG TAB PO SCH (11:07)
[2022-01-20] MEDS: Tamsulosin HCl 0.4 MG CAP PO SCH (11:07)
[2022-01-20] MEDS: Magnesium Oxide 400 MG TAB PO SCH (11:07)
[2022-01-20] MEDS: Senokot 8.6 MG TAB PO SCH (11:08)
[2022-01-20] MEDS: Multivitamin W/ Minerals 1 TAB PO SCH (11:08)
[2022-01-20] MEDS: Furosemide 20 MG TAB PO SCH (11:09)
[2022-01-20] MEDS: Carvedilol 3.125 MG TAB PO SCH ×2 (11:09→18:35)
[2022-01-20] MEDS: CALM MAG SUPPLEMENT PO SCH (11:10)
[2022-01-20] MEDS: HumaLOG 300 UNITS/3 ML VIAL SC PRN (12:28)
[2022-01-20] MEDS: Atorvastatin Calcium 40 MG TAB PO SCH (21:11)
[2022-01-20] MEDS: Famotidine 20 MG TAB PO SCH (21:11)
[2022-01-20] MEDS: Acetaminophen 325 MG TAB PO PRN (22:43)
[2022-01-20] MEDS: Cyclobenzaprine 10 MG TAB PO PRN (22:43)
[2022-01-21 04:52] LABS: Hemoglobin 9.2 g/dL (14.0-18.0); Platelet Count 222 thou/uL (130-400)
[2022-01-21] MEDS: Linaclotide [Linzess] 290 MCG Capsule PO SCH (05:36)
[2022-01-21] MEDS ORDERED: Metolazone 5 MG TAB PO SCH (07:15)
[2022-01-21] MEDS: Ubidecarenone 50 MG CAP PO SCH (08:43)
[2022-01-21] MEDS: Magnesium Oxide 400 MG TAB PO SCH (08:43)
[2022-01-21] MEDS: Aspirin 81 mg Enteric Coated Tablet PO SCH (08:43)
[2022-01-21] MEDS: Furosemide 20 MG TAB PO SCH (08:44)
[2022-01-21] MEDS: Cholecalciferol 1,000 UNITS (25 MCG) TAB PO SCH (08:44)
[2022-01-21] MEDS: Apixaban 5 MG TAB PO SCH ×2 (08:45→21:53)
[2022-01-21] MEDS: Senokot 8.6 MG TAB PO SCH ×2 (08:45→09:03)
[2022-01-21] MEDS: Cyanocobalamin (Vitamin B-12) 1,000 MCG TAB PO SCH (08:45)
[2022-01-21] MEDS: Carvedilol 3.125 MG TAB PO SCH ×2 (08:45→17:12)
[2022-01-21] MEDS: Tamsulosin HCl 0.4 MG CAP PO SCH (08:45)
[2022-01-21] MEDS: CALM MAG SUPPLEMENT PO SCH (08:46)
[2022-01-21] MEDS: Multivitamin W/ Minerals 1 TAB PO SCH (08:46)
[2022-01-21] MEDS: Lantus 1000 UNITS/10 ML VIAL SC SCH (08:47)
[2022-01-21] MEDS: Cyclobenzaprine 10 MG TAB PO PRN ×2 (11:45→21:56)
[2022-01-21] MEDS: Acetaminophen 325 MG TAB PO PRN ×2 (11:45→21:55)
[2022-01-21] MEDS: HumaLOG 300 UNITS/3 ML VIAL SC PRN (12:36)
[2022-01-21] MEDS: Atorvastatin Calcium 40 MG TAB PO SCH (21:53)
[2022-01-21] MEDS: Famotidine 20 MG TAB PO SCH (21:53)
[2022-01-22] MEDS: Linaclotide [Linzess] 290 MCG Capsule PO SCH (05:49)
[2022-01-22] MEDS: Cholecalciferol 1,000 UNITS (25 MCG) TAB PO SCH (08:32)
[2022-01-22] MEDS: Ubidecarenone 50 MG CAP PO SCH (08:32)
[2022-01-22] MEDS: Cyanocobalamin (Vitamin B-12) 1,000 MCG TAB PO SCH (08:32)
[2022-01-22] MEDS: Carvedilol 3.125 MG TAB PO SCH ×2 (08:32→17:49)
[2022-01-22] MEDS: Apixaban 5 MG TAB PO SCH ×2 (08:33→20:36)
[2022-01-22] MEDS: Magnesium Oxide 400 MG TAB PO SCH (08:33)
[2022-01-22] MEDS: Senokot 8.6 MG TAB PO SCH (08:33)
[2022-01-22] MEDS: Tamsulosin HCl 0.4 MG CAP PO SCH (08:33)
[2022-01-22] MEDS: Multivitamin W/ Minerals 1 TAB PO SCH (08:33)
[2022-01-22] MEDS: Furosemide 20 MG TAB PO SCH (08:34)
[2022-01-22] MEDS: Aspirin 81 mg Enteric Coated Tablet PO SCH (08:34)
[2022-01-22] MEDS: CALM MAG SUPPLEMENT PO SCH (08:43)
[2022-01-22] MEDS: Lantus 1000 UNITS/10 ML VIAL SC SCH (08:45)
[2022-01-22] MEDS: HumaLOG 300 UNITS/3 ML VIAL SC PRN ×2 (12:10→17:49)
[2022-01-22] MEDS: Famotidine 20 MG TAB PO SCH (20:36)
[2022-01-22] MEDS: Atorvastatin Calcium 40 MG TAB PO SCH (20:36)
[2022-01-23] MEDS: Linaclotide [Linzess] 290 MCG Capsule PO SCH (05:54)
[2022-01-23] MEDS: Cholecalciferol 1,000 UNITS (25 MCG) TAB PO SCH (08:52)
[2022-01-23] MEDS: Ubidecarenone 50 MG CAP PO SCH (08:53)
[2022-01-23] MEDS: Cyanocobalamin (Vitamin B-12) 1,000 MCG TAB PO SCH (08:53)
[2022-01-23] MEDS: Senokot 8.6 MG TAB PO SCH (08:54)
[2022-01-23] MEDS: Magnesium Oxide 400 MG TAB PO SCH (08:54)
[2022-01-23] MEDS: Multivitamin W/ Minerals 1 TAB PO SCH (08:54)
[2022-01-23] MEDS: Apixaban 5 MG TAB PO SCH ×2 (08:54→20:52)
[2022-01-23] MEDS: Aspirin 81 mg Enteric Coated Tablet PO SCH (08:55)
[2022-01-23] MEDS: Tamsulosin HCl 0.4 MG CAP PO SCH ×2 (08:55→12:52)
[2022-01-23] MEDS: Carvedilol 3.125 MG TAB PO SCH ×2 (08:55→18:00)
[2022-01-23] MEDS: Lantus 1000 UNITS/10 ML VIAL SC SCH (08:56)
[2022-01-23] MEDS: HumaLOG 300 UNITS/3 ML VIAL SC PRN ×2 (12:47→18:00)
[2022-01-23] MEDS: Furosemide 20 MG TAB PO SCH (12:52)
[2022-01-23] MEDS: CALM MAG SUPPLEMENT PO SCH (12:53)
[2022-01-23] MEDS: Atorvastatin Calcium 40 MG TAB PO SCH (20:52)
[2022-01-23] MEDS: Famotidine 20 MG TAB PO SCH (20:52)
[2022-01-24] MEDS: Linaclotide [Linzess] 290 MCG Capsule PO SCH (04:49)
[2022-01-24] MEDS: HumaLOG 300 UNITS/3 ML VIAL SC PRN ×2 (09:48→12:36)
[2022-01-24] MEDS: Lantus 1000 UNITS/10 ML VIAL SC SCH (09:48)
[2022-01-24] MEDS: Furosemide 20 MG TAB PO SCH (09:50)
[2022-01-24] MEDS: Cholecalciferol 1,000 UNITS (25 MCG) TAB PO SCH (09:50)
[2022-01-24] MEDS: Tamsulosin HCl 0.4 MG CAP PO SCH (09:50)
[2022-01-24] MEDS: Carvedilol 3.125 MG TAB PO SCH ×2 (09:50→17:39)
[2022-01-24] MEDS: Apixaban 5 MG TAB PO SCH ×2 (09:50→21:19)
[2022-01-24] MEDS: Senokot 8.6 MG TAB PO SCH (09:50)
[2022-01-24] MEDS: Ubidecarenone 50 MG CAP PO SCH (09:50)
[2022-01-24] MEDS: Magnesium Oxide 400 MG TAB PO SCH (09:50)
[2022-01-24] MEDS: Aspirin 81 mg Enteric Coated Tablet PO SCH (09:50)
[2022-01-24] MEDS: Multivitamin W/ Minerals 1 TAB PO SCH (09:50)
[2022-01-24] MEDS: Cyanocobalamin (Vitamin B-12) 1,000 MCG TAB PO SCH (09:50)
[2022-01-24] MEDS: CALM MAG SUPPLEMENT PO SCH (09:52)
[2022-01-24] MEDS: Acetaminophen 325 MG TAB PO PRN (12:43)
[2022-01-24] MEDS: Atorvastatin Calcium 40 MG TAB PO SCH (21:19)
[2022-01-24] MEDS: Famotidine 20 MG TAB PO SCH (21:19)
[2022-01-25] MEDS: Acetaminophen 325 MG TAB PO PRN ×2 (01:00→10:45)
[2022-01-25] MEDS: Cyclobenzaprine 10 MG TAB PO PRN (01:00)
[2022-01-25] MEDS: Linaclotide [Linzess] 290 MCG Capsule PO SCH (05:18)
[2022-01-25] MEDS: Multivitamin W/ Minerals 1 TAB PO SCH (08:40)
[2022-01-25] MEDS: Tamsulosin HCl 0.4 MG CAP PO SCH (08:40)
[2022-01-25] MEDS: Senokot 8.6 MG TAB PO SCH (08:40)
[2022-01-25] MEDS: Aspirin 81 mg Enteric Coated Tablet PO SCH (08:40)
[2022-01-25] MEDS: Cyanocobalamin (Vitamin B-12) 1,000 MCG TAB PO SCH (08:40)
[2022-01-25] MEDS: Cholecalciferol 1,000 UNITS (25 MCG) TAB PO SCH (08:40)
[2022-01-25] MEDS: Ubidecarenone 50 MG CAP PO SCH (08:40)
[2022-01-25] MEDS: Carvedilol 3.125 MG TAB PO SCH ×2 (08:40→16:52)
[2022-01-25] MEDS: Magnesium Oxide 400 MG TAB PO SCH (08:41)
[2022-01-25] MEDS: Apixaban 5 MG TAB PO SCH ×2 (08:41→20:10)
[2022-01-25] MEDS: Furosemide 20 MG TAB PO SCH (08:41)
[2022-01-25] MEDS: CALM MAG SUPPLEMENT PO SCH (08:42)
[2022-01-25] MEDS: Lantus 1000 UNITS/10 ML VIAL SC SCH (08:42)
[2022-01-25] MEDS: HumaLOG 300 UNITS/3 ML VIAL SC PRN (12:23)
[2022-01-25] MEDS: Atorvastatin Calcium 40 MG TAB PO SCH (20:10)
[2022-01-25] MEDS: Famotidine 20 MG TAB PO SCH (20:10)
[2022-01-26] MEDS: Linaclotide [Linzess] 290 MCG Capsule PO SCH (05:21)
[2022-01-26 05:32] VITALS: BP 111/63; TEMP 98.2
[2022-01-26] MEDS: Ubidecarenone 50 MG CAP PO SCH (09:05)
[2022-01-26] MEDS: Cyanocobalamin (Vitamin B-12) 1,000 MCG TAB PO SCH (09:06)
[2022-01-26] MEDS: Multivitamin W/ Minerals 1 TAB PO SCH (09:07)
[2022-01-26] MEDS: Senokot 8.6 MG TAB PO SCH (09:07)
[2022-01-26] MEDS: Furosemide 20 MG TAB PO SCH (09:08)
[2022-01-26] MEDS: Carvedilol 3.125 MG TAB PO SCH (09:08)
[2022-01-26] MEDS: Tamsulosin HCl 0.4 MG CAP PO SCH (09:08)
[2022-01-26] MEDS: Apixaban 5 MG TAB PO SCH (09:08)
[2022-01-26] MEDS: Aspirin 81 mg Enteric Coated Tablet PO SCH (09:08)
[2022-01-26] MEDS: Cholecalciferol 1,000 UNITS (25 MCG) TAB PO SCH (09:08)
[2022-01-26] MEDS: Magnesium Oxide 400 MG TAB PO SCH (09:08)
[2022-01-26] MEDS: CALM MAG SUPPLEMENT PO SCH (09:09)
[2022-01-26] MEDS: Lantus 1000 UNITS/10 ML VIAL SC SCH (09:18)
[2022-01-26] MEDS: HumaLOG 300 UNITS/3 ML VIAL SC PRN (12:13)
== END 2022-01-26 14:00 | disposition home health service (06) | DRG 559 ==
LOC: BURMED 12-09 19:44
PROVIDERS: ADMIT Family Medicine; ATTEND Family Medicine
PROC: 8E0ZXY6 Isolation (ICD-10-PCS; principal; 2021-12-09)
DX: S72.141D Displaced intertrochanteric fracture of right femur, subsequent encounter for closed fracture with routine healing (principal); U07.1 COVID-19; N17.9 Acute kidney failure, unspecified; I48.20 Chronic atrial fibrillation, unspecified; K56.7 Ileus, unspecified; I13.0 Hypertensive heart and chronic kidney disease with heart failure and stage 1 through stage 4 chronic kidney disease, or unspecified chronic kidney disease; W18.30XD Fall on same level, unspecified, subsequent encounter; R33.9 Retention of urine, unspecified; I50.9 Heart failure, unspecified; I25.10 Atherosclerotic heart disease of native coronary artery without angina pectoris; E78.5 Hyperlipidemia, unspecified; K59.00 Constipation, unspecified; Z95.2 Presence of prosthetic heart valve; N18.9 Chronic kidney disease, unspecified; E11.22 Type 2 diabetes mellitus with diabetic chronic kidney disease
CPT/HCPCS: 36415; 36416; 71046; 74018; 74177; 80048; 80053; 82565; 85014; 85018; 85025; 85049; J1815; J2185; J2550; J3490; J7042; Q0162

== ENCOUNTER 2022-02-02 10:55 | Inpatient (IN) | payer MEDICARE ==
[2022-02-02] MEDS ORDERED: Piperacillin/Tazobactam 4.5 GM VIAL ONE (11:28)
[2022-02-02 11:37] LABS: #Basophils 0.1 thou/uL (0.0-0.2); #Lymphocytes 0.9 thou/uL (1.20-3.40); #Monocytes 0.9 thou/uL (0.11-0.59); %Basophils 0.5 % (0.0-1.0); %Eosinophils 0.2 % (0.0-10.0); %Neutrophils 85.3 % (42.0-75.0); Mean Corpuscular HGB CONC 33.6 g/dL (32.0-36.0); Mean Corpuscular Hemoglobin 33.3 pg (27.0-31.0); Mean Corpuscular Volume 99.3 fL (78.0-98.0); Mean Platelet Volume 7.3 fL (7.4-10.4); Platelet Count 224 thou/uL (130-400); RBC Distribution Width 13.5 % (11.5-14.5); White Blood Cell (WBC) Count 12.9 thou/uL (4.8-10.8)
[2022-02-02 11:52] LABS: ALT (SGPT) 13 U/L (8-55); AST (SGOT) 15 U/L (5-34); Albumin 3.3 g/dL (3.4-4.8); Alkaline Phosphatase 115 U/L (40-110); Anion Gap 16 mmol/L (10-20); BUN (Urea Nitrogen) 46 mg/dL (8.4-25.7); Bilirubin, Total 0.6 mg/dL (0.2-1.2); Calc. Creatinine Clearance 0 mL/min (70-130); Calcium 8.8 mg/dL (7.8-10.44); Carbon Dioxide 21 mmol/L (23-31); Chloride 110 mmol/L (98-107); Globulin 3.4 g/dL (2.4-3.5); Glucose 234 mg/dL (83-110); Potassium 3.8 mmol/L (3.5-5.1); Protein, Total 6.7 g/dL (5.8-8.1); Sodium 143 mmol/L (136-145)
[2022-02-02] MEDS ORDERED: Acetaminophen 325 MG TAB PO PRN (13:45)
[2022-02-02] MEDS ORDERED: Ondansetron PF 4 MG/2 ML Vial IVP PRN (13:45)
[2022-02-02] MEDS ORDERED: Ondansetron ODT 4 MG TAB SL PRN (13:45)
[2022-02-02 14:53] VITALS: BMI 33.7
[2022-02-02] MEDS ORDERED: Cyclobenzaprine 10 MG TAB PO PRN (15:44)
[2022-02-02] MEDS ORDERED: HumaLOG 300 UNITS/3 ML VIAL SC PRN (15:47)
[2022-02-02] MEDS ORDERED: Dextrose 5% in Water 1,000 ML IV PRN (15:47)
[2022-02-02] MEDS ORDERED: Dextrose 50% Abboject 50 ML SYRINGE SLOW IVP PRN (15:47)
[2022-02-02] MEDS ORDERED: [UNRECOGNIZED DRUG - OTHER] TOP PRN (16:10)
[2022-02-02] MEDS: Carvedilol 3.125 MG TAB PO SCH (18:20)
[2022-02-02] MEDS: Sodium Chloride 0.9% 1,000 ML IV SCH ×2 (18:20→22:45)
[2022-02-02] MEDS ORDERED: Piperacillin/Tazobactam 3.375 GM in Sodium Chloride 0.9% 100 ML IVPB SCH ×2 (19:30→22:30)
[2022-02-02] MEDS ORDERED: Vancomycin HCl 1.75 GM in Sodium Chloride 0.9% 250 ML 300 ML IVPB SCH (21:00)
[2022-02-02] MEDS: Lantus 1000 UNITS/10 ML VIAL SC SCH (21:19)
[2022-02-02] MEDS: Fish Oil 1,000 MG CAP PO SCH (21:20)
[2022-02-02] MEDS: Atorvastatin Calcium 40 MG TAB PO SCH (21:20)
[2022-02-02] MEDS: Apixaban 5 MG TAB PO SCH (21:20)
[2022-02-02] MEDS ORDERED: hydrOXYzine 25 MG TAB PO SCH (22:30)
[2022-02-02] MEDS ORDERED: Vancomycin HCl 750 MG in Sodium Chloride 0.9% 250 ML 250 ML IVPB SCH (23:59)
[2022-02-03] MEDS ORDERED: Vancomycin HCl 750 MG in Sodium Chloride 0.9% 250 ML 250 ML IVPB SCH (01:00)
[2022-02-03] MEDS: Piperacillin/Tazobactam 3.375 GM in Sodium Chloride 0.9% 100 ML IVPB SCH ×3 (05:01→20:42)
[2022-02-03] MEDS: LINZESS 290 MG PO SCH (05:23)
[2022-02-03 05:24] LABS: ALT (SGPT) 12 U/L (8-55); AST (SGOT) 15 U/L (5-34); Albumin 2.7 g/dL (3.4-4.8); Alkaline Phosphatase 90 U/L (40-110); Anion Gap 13 mmol/L (10-20); BUN (Urea Nitrogen) 35 mg/dL (8.4-25.7); Bilirubin, Total 0.5 mg/dL (0.2-1.2); Calc. Creatinine Clearance 66 mL/min (70-130); Calcium 8.2 mg/dL (7.8-10.44); Carbon Dioxide 22 mmol/L (23-31); Chloride 114 mmol/L (98-107); Globulin 2.8 g/dL (2.4-3.5); Glucose 83 mg/dL (83-110); Potassium 3.8 mmol/L (3.5-5.1); Protein, Total 5.5 g/dL (5.8-8.1); Sodium 145 mmol/L (136-145)
[2022-02-03 06:33] LABS: Hemoglobin 8.7 g/dL (14.0-18.0); Mean Corpuscular HGB CONC 33.5 g/dL (32.0-36.0); Mean Corpuscular Volume 98.6 fL (78.0-98.0); Mean Platelet Volume 6.5 fL (7.4-10.4); Platelet Count 170 thou/uL (130-400); RBC Distribution Width 13.2 % (11.5-14.5); Red Blood Cell (RBC) Count 2.65 mill/uL (4.70-6.10); White Blood Cell (WBC) Count 9.3 thou/uL (4.8-10.8)
[2022-02-03 06:39] LABS: Band 4 % (5-11); Lymphocytes 13 % (21-51); MDiff Complete? YES; Monocytes 5 % (0-10); Neutrophil 78 % (42-75); RBC Morphology Normal
[2022-02-03] MEDS: Cholecalciferol 1,000 UNITS (25 MCG) TAB PO SCH (08:57)
[2022-02-03] MEDS: Apixaban 5 MG TAB PO SCH ×2 (08:59→20:44)
[2022-02-03] MEDS: Carvedilol 3.125 MG TAB PO SCH ×2 (08:59→17:46)
[2022-02-03] MEDS: Multivitamin W/ Minerals 1 TAB PO SCH (08:59)
[2022-02-03] MEDS: Cyanocobalamin (Vitamin B-12) 1,000 MCG TAB PO SCH (09:00)
[2022-02-03] MEDS: Fish Oil 1,000 MG CAP PO SCH ×2 (09:00→20:44)
[2022-02-03] MEDS: Senokot 8.6 MG TAB PO SCH (09:00)
[2022-02-03] MEDS: Furosemide 20 MG TAB PO SCH (09:00)
[2022-02-03] MEDS: Tamsulosin HCl 0.4 MG CAP PO SCH (09:01)
[2022-02-03] MEDS: Polyethylene Glycol 3350 17 GM Packet PO SCH (09:01)
[2022-02-03] MEDS: Lantus 1000 UNITS/10 ML VIAL SC SCH ×2 (09:03→20:43)
[2022-02-03] MEDS: MILK THISTLE PO SCH (09:05)
[2022-02-03] MEDS: Acetaminophen 500 MG TAB PO PRN ×2 (13:43→23:30)
[2022-02-03] MEDS: Sodium Chloride 0.9% 1,000 ML IV SCH (17:47)
[2022-02-03] MEDS: hydrOXYzine 25 MG TAB PO SCH (20:44)
[2022-02-03] MEDS: Atorvastatin Calcium 40 MG TAB PO SCH (20:44)
[2022-02-03] MEDS: Vancomycin HCl 1 GM in Sodium Chloride 0.9% 250 ML 250 ML IVPB SCH (23:31)
[2022-02-04] MEDS: Piperacillin/Tazobactam 3.375 GM in Sodium Chloride 0.9% 100 ML IVPB SCH ×3 (04:09→20:07)
[2022-02-04] MEDS: LINZESS 290 MG PO SCH (05:36)
[2022-02-04] MEDS: Cholecalciferol 1,000 UNITS (25 MCG) TAB PO SCH (08:54)
[2022-02-04] MEDS: Fish Oil 1,000 MG CAP PO SCH ×2 (08:55→20:42)
[2022-02-04] MEDS: Carvedilol 3.125 MG TAB PO SCH ×2 (08:55→16:41)
[2022-02-04] MEDS: Multivitamin W/ Minerals 1 TAB PO SCH (08:55)
[2022-02-04] MEDS: Senokot 8.6 MG TAB PO SCH (08:56)
[2022-02-04] MEDS: Furosemide 20 MG TAB PO SCH (08:56)
[2022-02-04] MEDS: Tamsulosin HCl 0.4 MG CAP PO SCH (08:56)
[2022-02-04] MEDS: Cyanocobalamin (Vitamin B-12) 1,000 MCG TAB PO SCH (08:56)
[2022-02-04] MEDS: Apixaban 5 MG TAB PO SCH ×2 (08:57→20:42)
[2022-02-04] MEDS: Lantus 1000 UNITS/10 ML VIAL SC SCH (08:58)
[2022-02-04] MEDS: MILK THISTLE PO SCH (10:37)
[2022-02-04] MEDS: Acetaminophen 500 MG TAB PO PRN (10:37)
[2022-02-04] MEDS: Polyethylene Glycol 3350 17 GM Packet PO SCH (10:42)
[2022-02-04] MEDS: Sodium Chloride 0.9% 1,000 ML IV SCH ×2 (11:36→11:37)
[2022-02-04] MEDS: hydrOXYzine 25 MG TAB PO SCH (20:42)
[2022-02-04] MEDS: Atorvastatin Calcium 40 MG TAB PO SCH (20:42)
[2022-02-04] MEDS: Vancomycin HCl 1 GM in Sodium Chloride 0.9% 250 ML 250 ML IVPB SCH (23:41)
[2022-02-05] MEDS: Piperacillin/Tazobactam 3.375 GM in Sodium Chloride 0.9% 100 ML IVPB SCH ×2 (03:54→12:57)
[2022-02-05] MEDS: LINZESS 290 MG PO SCH (05:36)
[2022-02-05 06:10] VITALS: BP 113/66; TEMP 98.3
[2022-02-05] MEDS: Lantus 1000 UNITS/10 ML VIAL SC SCH (09:30)
[2022-02-05] MEDS: Apixaban 5 MG TAB PO SCH (09:33)
[2022-02-05] MEDS: Cholecalciferol 1,000 UNITS (25 MCG) TAB PO SCH (09:33)
[2022-02-05] MEDS: Carvedilol 3.125 MG TAB PO SCH (09:34)
[2022-02-05] MEDS: Cyanocobalamin (Vitamin B-12) 1,000 MCG TAB PO SCH (09:34)
[2022-02-05] MEDS: Tamsulosin HCl 0.4 MG CAP PO SCH (09:35)
[2022-02-05] MEDS: Furosemide 20 MG TAB PO SCH (09:35)
[2022-02-05] MEDS: Fish Oil 1,000 MG CAP PO SCH (09:35)
[2022-02-05] MEDS: Senokot 8.6 MG TAB PO SCH (09:35)
[2022-02-05] MEDS: Multivitamin W/ Minerals 1 TAB PO SCH (09:35)
[2022-02-05] MEDS: MILK THISTLE PO SCH (09:36)
[2022-02-05] MEDS: Polyethylene Glycol 3350 17 GM Packet PO SCH (09:36)
[2022-02-05] MEDS ORDERED: Sulfameth/Trimethoprim DS 800-160mg TAB PO SCH ×2 (21:00)
== END 2022-02-05 16:00 | disposition home or self-care (01) | DRG 638 ==
LOC: BURERS 10:55 → BURMED 12:35
PROVIDERS: ADMIT Family Medicine; ATTEND Family Medicine
DX: E11.628 Type 2 diabetes mellitus with other skin complications (principal); L03.116 Cellulitis of left lower limb; I50.42 Chronic combined systolic (congestive) and diastolic (congestive) heart failure; I48.20 Chronic atrial fibrillation, unspecified; I13.0 Hypertensive heart and chronic kidney disease with heart failure and stage 1 through stage 4 chronic kidney disease, or unspecified chronic kidney disease; B95.62 Methicillin resistant Staphylococcus aureus infection as the cause of diseases classified elsewhere; E11.22 Type 2 diabetes mellitus with diabetic chronic kidney disease; N18.2 Chronic kidney disease, stage 2 (mild); E78.5 Hyperlipidemia, unspecified; I25.10 Atherosclerotic heart disease of native coronary artery without angina pectoris; Z86.73 Personal history of transient ischemic attack (TIA), and cerebral infarction without residual deficits; Z95.1 Presence of aortocoronary bypass graft; Z90.49 Acquired absence of other specified parts of digestive tract; Z90.89 Acquired absence of other organs; Z88.1 Allergy status to other antibiotic agents; Z88.2 Allergy status to sulfonamides; Z79.84 Long term (current) use of oral hypoglycemic drugs; Z79.899 Other long term (current) drug therapy
CPT/HCPCS: 36415; 36416; 80053; 80202; 83605; 85025; 87040; 87070; 87077; 87186; 87205; J1815; J2543; J3370; J3490; J7050